=== PATIENT | female | born 1940 | race Caucasian/White ===

== ENCOUNTER 2019-05-31 18:56 | Inpatient (IN) | payer MEDICARE, MEDICAID ==
[~2019-05-31] VITALS: Ht 154.9 cm; Wt 50.3 kg
[~2019-05-31 18:56] MED LIST: LEXAPRO10 MG ORAL; MECLIZINE HCL12.5 MG ORAL; METOPROLOL TART25 MG ORAL; NEXIUM2.5 MG ORAL
[2019-05-31 18:59] VITALS: BP 155/94
--- NOTE | 2019-05-31 18:59 | NUR ---
ED Nurse Note: Pt brought in by JS RA [id number] from home for c/o musculoskeletal chest pain and nose pain s/p fall. Per [facility], pt was walking outside of her apartment complex and tripped and fell from ground level landing on her chest and face. Abrasians to nose noted. No LOC or head trauma. Pt had recent pacemaker insetion one week ago. Pt is aaox4, breathing is normal and unlabored. No cardiac distress noted. Pt placed on teletypesetter monitor. safety measures in place, will continue to monitor.
--- NOTE | 2019-05-31 19:05 | NUR ---
HAND-OFF: Report given to Heron Johnson and endorsed care.
--- NOTE | 2019-05-31 19:06 | NUR ---
ED Nurse Note: Received report from Rufina CASTRO. Pt alert and oriented, verbally responsive. Not in any distress. Will cont to monitor.
[2019-05-31] MEDS ORDERED: Morphine Sulfate 2mg/ml Inj(IV/IM USE ONLY) IVP ONE (19:30)
[2019-05-31] MEDS ORDERED: Bacitracin Oint UD TOPIC ONE (19:30)
--- NOTE | 2019-05-31 19:30 | NUR ---
ED Nurse Note: IV line established. Blood specimen collected and sent to lab.
[2019-05-31 19:38] LABS: BASOPHILS % (AUTO) 0.7 % (0.0-2.0); EOSINOPHILS % (AUTO) 0.5 % (0.0-3.0); HEMATOCRIT 38.8 % (37.0-47.0); HEMOGLOBIN 12.9 G/DL (12.0-16.0); LYMPHOCYTES % (AUTO) 12.7 % (20.0-45.0); MEAN CORPUSCULAR VOLUME 85 FL (80-99); MONOCYTES % (AUTO) 6.5 % (1.0-10.0); NEUTROPHILS % (AUTO) 79.6 % (45.0-75.0); PLATELET COUNT 155 K/UL (150-450); RED BLOOD COUNT 4.56 M/UL (4.20-5.40); RED CELL DISTRIBUTION WIDTH 12.4 % (11.6-14.8); WHITE BLOOD COUNT 5.8 K/UL (4.8-10.8)
--- NOTE | 2019-05-31 19:55 | NUR ---
ED Nurse Note: Pt was taken for CT.
[2019-05-31 20:01] LABS: ANION GAP 10 mmol/L (5-15); BLOOD UREA NITROGEN 20 mg/dL (7-18); CALCIUM 9.1 MG/DL (8.5-10.1); CARBON DIOXIDE 25 MMOL/L (21-32); CHLORIDE 106 MMOL/L (98-107); CREATININE 0.8 MG/DL (0.55-1.30); POTASSIUM 4.2 MMOL/L (3.5-5.1); SODIUM 141 MMOL/L (136-145)
[2019-05-31 20:03] LABS: ALANINE AMINOTRANSFERASE 22 U/L (12-78); ALBUMIN 3.6 G/DL (3.4-5.0); ALBUMIN/GLOBULIN RATIO 1.1 (1.0-2.7); ALKALINE PHOSPHATASE 75 U/L (46-116); ASPARTATE AMINO TRANSFERASE 20 U/L (15-37); BILIRUBIN,TOTAL 0.5 MG/DL (0.2-1.0)
--- NOTE | 2019-05-31 20:14 | NUR ---
ED Nurse Note: Pt came back from CT. Not in any distress.
[2019-05-31 20:15] VITALS: BP 166/79
--- NOTE | 2019-05-31 20:25 | Emergency Room Report ---
History of Present Illness General Chief Complaint: Multiple Trauma/Fall Source: Patient Present Illness HPI 79-year-old female presents ED for evaluation. Brought in by EMS from home. Patient had a mechanical trip and fall. Fell forward and hit her head. Landed on her chest. Denies LOC. Has abrasions and swelling to her nose. Pain to her chest. Dull, 7 out of 10, nonradiating. Denies any other injuries. Denies photophobia or blurry vision. Denies taking blood thinners. No other aggravating relieving factors. Denies any other associated symptoms Allergies: Coded Allergies: No Known Allergies (Unverified , 05/31/19) Patient History Past Medical History: HTN Past Surgical History: pacemaker Pertinent Family History: none Social History: Denies: smoking, alcohol use, drug use Now: No Immunizations: UTD Reviewed Nursing Documentation: PMH: Agreed; PSxH: Agreed Nursing Documentation-PMH Past Medical History: No History, Except For Hx Hypertension: Yes Hx Pacemaker: Yes Review of Systems All Other Systems: negative except mentioned in HPI Physical Exam Vital Signs Date Time Temp Pulse Resp B/P (MAP) Pulse Ox O2 Delivery O2 Flow Rate FiO2 05/31/19 18:49 98.2 97 19 155/94 (114) 98 Room Air Sp02 EP Interpretation: reviewed, normal General Appearance: no apparent distress, alert, GCS 15, non-toxic Head: normocephalic, atraumatic Eyes: bilateral eye normal inspection, bilateral eye PERRL ENT: hearing grossly normal, normal pharynx, no angioedema, normal voice, other - swelling/abrasions to nose Neck: full range of motion, supple, no bony tend, supple/symm/no masses Respiratory: chest non-tender, lungs clear, normal breath sounds, speaking full sentences Cardiovascular #1: regular rate, rhythm, no edema Cardiovascular #2: 2+ carotid (R), 2+ carotid (L), 2+ radial (R), 2+ radial (L) , 2+ dorsalis pedis (R), 2+ dorsalis pedis (L) Gastrointestinal: normal bowel sounds, non tender, soft, non-distended, no guarding, no rebound Rectal: deferred Genitourinary: normal inspection, no CVA tenderness Musculoskeletal: back normal, normal range of motion, gait/station normal, non- tender Neurologic: alert, motor strength/tone normal, oriented x3, sensory intact, responsive, speech normal Psychiatric: judgement/insight normal, memory normal, mood/affect normal, no suicidal/homicidal ideation Reflexes: 3+ bicep (R), 3+ bicep (L), 3+ tricep (R), 3+ tricep (L), 3+ knee (R) , 3+ knee (L) Skin: abrasion - to nose Lymphatic: no adenopathy Medical Decision Making Diagnostic Impression: Primary Impression: Weakness Additional Impressions: Unsteady gait Head injury Qualified Codes: S09.90XA - Unspecified injury of head, initial encounter ER Course Hospital Course 79 yo F presents with abrasions to face, nose s/p fall Differential diagnoses include: [place]/unstable angina, arrythmia, dehydration, CVA/ TIA Clinical course Patient placed on stretcher. on cafeteria monitor. After initial history and physical I ordered labs, EKG, chest x-ray, IVFs, CT Brain, CT facial bones labs reviewed- no leukocytosis, hemoglobin/hematocrit ok, electrolytes okay, troponins negative EKG- NSR no acute ischemic changes intpereted by me CT brain-unremarkable CT facial bones - nasal bone fx CT chest - no acute process discussed with patient and son at bedside. workup negative, however patient remains unsteady during ambulation. I did not believe it is safe to discharge to home patient will be admitted to the hospital Case discussed with Dr. Duarte and he agreed to accept the patient to his service for further care and support I. I feel this is a highly complex case requiring extensive working including EKG/Rhythm strip, Xray/CT/US, Blood/urine lab work, repeat exams while in ED, and administration of strong opiates/narcotics for pain control, admission to hospital or close patient follow up. Diagnosis - weakness, unsteady gait, head injury admitted to floor in serious condition Labs Test 05/31/19 19:30 White Blood Count 5.8 K/UL (4.8-10.8) Red Blood Count 4.56 M/UL (4.20-5.40) Hemoglobin 12.9 G/DL (12.0-16.0) Hematocrit 38.8 % (37.0-47.0) Mean Corpuscular Volume 85 FL (80-99) Mean Corpuscular Hemoglobin 28.3 PG (27.0-31.0) Mean Corpuscular Hemoglobin Concent 33.3 G/DL (32.0-36.0) Red Cell Distribution Width 12.4 % (11.6-14.8) Platelet Count 155 K/UL (150-450) Mean Platelet Volume 7.5 FL (6.5-10.1) Neutrophils (%) (Auto) 79.6 % (45.0-75.0) Lymphocytes (%) (Auto) 12.7 % (20.0-45.0) Monocytes (%) (Auto) 6.5 % (1.0-10.0) Eosinophils (%) (Auto) 0.5 % (0.0-3.0) Basophils (%) (Auto) 0.7 % (0.0-2.0) Sodium Level 141 MMOL/L (136-145) Potassium Level 4.2 MMOL/L (3.5-5.1) Chloride Level 106 MMOL/L (98-107) Carbon Dioxide Level 25 MMOL/L (21-32) Anion Gap 10 mmol/L (5-15) Blood Urea Nitrogen 20 mg/dL (7-18) Creatinine 0.8 MG/DL (0.55-1.30) Estimat Glomerular Filtration Rate mL/min (>60) Glucose Level 111 MG/DL (74-106) Calcium Level 9.1 MG/DL (8.5-10.1) Total Bilirubin 0.5 MG/DL (0.2-1.0) Aspartate Amino Transf (AST/SGOT) 20 U/L (15-37) Alanine Aminotransferase (ALT/SGPT) 22 U/L (12-78) Alkaline Phosphatase 75 U/L (46-116) Troponin I 0.000 ng/mL (0.000-0.056) Total Protein 7.0 G/DL (6.4-8.2) Albumin 3.6 G/DL (3.4-5.0) Globulin 3.4 g/dL Albumin/Globulin Ratio 1.1 (1.0-2.7) EKG Diagnostic Results Rate: normal Rhythm: NSR ST Segments: no acute changes ASA given to the pt in ED: No Rhythm Strip Diag. Results EP Interpretation: yes Rhythm: NSR, no PVC's, no ectopy CT/MRI/US Diagnostic Results CT/MRI/US Diagnostic Results #1: Imaging Test Ordered: CT head Impression no acute process CT/MRI/US Diagnostic Results #2: Imaging Test Ordered: CT Facial Bones Impression nasal bone fx CT/MRI/US Diagnostic Results #3: Imaging Test Ordered: CT chest Impression no acute process Last Vital Signs Date Time Temp Pulse Resp B/P (MAP) Pulse Ox O2 Delivery O2 Flow Rate FiO2 05/31/19 20:05 98.2 05/31/19 18:59 96 19 155/94 98 Room Air Status: improved Disposition: ADMITTED INPATIENT Condition: Serious Referrals: NOT CHOSEN IPA/,REFERRING (PCP) Mina Chiang MD May 31, 2019 20:24
--- NOTE | 2019-05-31 21:46 | NUR ---
ED Nurse Note: Tor (son): [phone] or [phone].
--- NOTE | 2019-05-31 22:22 | NUR ---
ED Nurse Note: Report given to Derek CASTRO from [facility].
[2019-05-31 22:25] VITALS: BP 150/82
--- NOTE | 2019-05-31 22:25 | NUR ---
TRANSFER TO FLOOR: Patient transferred to [facility]. Report given to Derek CASTRO. Pt alert and oriented, verbally reponsive. No SOB. Afebrile. VSS. IV line on left AC 20g patent and intact. Med recon done. Belongings list done. All belongings given to the patient. Family member aware of transfer.
[2019-05-31 22:30] VITALS: BP 159/96
[2019-05-31] MEDS ORDERED: Acetaminophen 650 MG SUPP RECTAL PRN (22:30)
--- NOTE | 2019-05-31 22:30 | NUR ---
NURSE NOTES: Patient came from ER via gurney. A&OX4. IV site patent and intact. Bruise noted on face due to fall from home. Belongings are checked. Bed in lowest position. Call light within reach. Will continue to monitor.
[2019-05-31] MEDS ORDERED: SYNTHROID25 MCG ORAL (23:00)
--- NOTE | 2019-05-31 23:11 | NUR ---
NURSE NOTES: Call left message to Dr. Duarte for new admit order. waiting a call back.
--- NOTE | 2019-05-31 23:40 | NUR ---
NURSE NOTES: Call left message to Dr. Duarte for new admit order. waiting a call back.
--- NOTE | 2019-06-01 00:24 | NUR ---
NURSE NOTES: Call left message to Dr. Duarte for new admit order. waiting a call back.
--- NOTE | 2019-06-01 01:21 | NUR ---
NURSE NOTES: Call left message to Dr. Duarte for new admit order. Notified shoe repair supervisor. Waiting a call back.
[2019-06-01 04:00] VITALS: BP 135/84
--- NOTE | 2019-06-01 07:23 | NUR ---
HAND-OFF: Report given to Gutierrez CASTRO.
--- NOTE | 2019-06-01 07:28 | NUR ---
NURSE NOTES: REceived report from MATTHEW Price. patient in bed. sleeping. no respiratory distress noted with o2 4l via NC. no facial grimacing. F/c draining. IV ib LH 22 running d5w@75/hr. IV site intact. GTF running @60/hr. high flower position at all times. seizure precaution. side rails padded. low bed and locked. call light within reach. alarm on. will continue to provide plan of care Addendum: 06/01/19 at 0732 by ANTONELLA WALKER RN Wrong patient.
[2019-06-01] MEDS ORDERED: Levothyroxine 25mcg tab ORAL ONE (07:30)
--- NOTE | 2019-06-01 07:33 | NUR ---
NURSE NOTES: Received report from MATTHEW Price patient in bed. alert. oriented. verbally responsive. no respiratory distress noted. mild discomfort on chest d/t fall. bruises on both orbital area. IV on LAC 20 saline lock, intact.patient asking home medication levotyroxine 25mcg tab po before breakfast. RN notified Dr. Duarte and received order levotyroxine 25mcg tab po qd now @0730 and @0630 from tomorrow. order noted and carried out. the bed in the lowest position and locked. call light within reach. will continue to provide plan of care.
[2019-06-01 08:00] VITALS: BP 136/78
--- NOTE | 2019-06-01 08:40 | Diagnostic Imaging Report ---
Clinical Indication: Musculoskeletal chest pain and nose pain status post fall, patient fell from ground-level landing on chest and face Technique: Spiral acquisitions obtained through the chest. No IV contrast utilized, reason not stated. Multiplanar reconstructions generated. Total dose length product 505 mGycm. CTDIvol(s) 10 mGy. Dose reduction achieved using automated exposure control Comparison: none Findings: There is a minimally displaced fracture of the sternal body. There is a small contusion deep to this within the mediastinal fat. No other fractures are evident. There are degenerative changes of the thoracic spine noted. No other significant soft tissue contusion demonstrated. There is a 9 mm soft tissue attenuation nodule in the right lower lobe, image 40 series 3. There is a subpleural 7 mm nodule in the left lower lobe. There are dependent posterior pulmonary atelectatic changes, more on the right than on the left. Some atelectasis or scarring is seen in the left infrahilar region. No pneumothorax. The heart size is normal. There is minimal anterior pericardial thickening. There are coronary artery calcifications. The thyroid appears somewhat atrophic. No axillary or chest wall mass or adenopathy. Included upper abdominal anatomy demonstrates a calcification within the spleen. Impression: Positive for nondisplaced sternal body fracture. Small retrosternal contusion noted. This was not described on the [facility] preliminary report. This was phoned to Dr. Aguero at the time of interpretation 8 mm right lower lobe pulmonary nodule. Recommend short interval CT follow-up in 6-12 months, per Fleischner Society guidelines Basilar atelectatic changes bilaterally Trace pericardial thickening versus fluid The remainder of the findings agree with the preliminary interpretation provided overnight by [facility] teleradiology service. The CT scanner at [facility] is accredited by the [employer] and the scans are performed using protocols designed to limit radiation exposure to as low as reasonably achievable to attain images of sufficient resolution adequate for diagnostic evaluation.
[2019-06-01] MEDS: Heparin 5000 units/ml inj SUBQ SCH ×2 (09:23→20:52)
[2019-06-01 12:00] VITALS: BP 146/87
--- NOTE | 2019-06-01 14:17 | NUR ---
NURSE NOTES: seen by Dr. Duarte. Dr. maddox for neuro consult. check pace maker function. possible discharge tomorrow.
[2019-06-01 16:00] VITALS: BP 152/102
--- NOTE | 2019-06-01 16:12 | NUR ---
CASE MANAGEMENT:REVIEW 79 YR OLD FEMALE BIBA FROM HOME CC;MULTIPLE TRAUMA/FALL SI;MULTIPLE INJURIES DUE TO TRAUMA 98.2 97 19 155/94 98% RA LABS WNL CXR= DISPLACED FX OF STERNAL BODY IS;IV NS IV MORPHINE ADMITTED TO MED SURG DCP; TO HOME
--- NOTE | 2019-06-01 16:30 | History and Physical Report ---
DATE OF ADMISSION: 05/31/2019 DATE AND TIME SEEN: 06/01/2019 at 2 p.m. CONSULTANTS: 1. Rohan Nunez M.D. 2. Andrea Miller M.D. CHIEF COMPLAINT: Weakness, fall, facial trauma, periorbital ecchymosis. BRIEF HISTORY: This is an 79-year-old female who lives at home apparently tripped and fell on her face, did not pass out, but she did have periorbital ecchymosis and slight nosebleeds. She came in to [facility], diagnosed with facial trauma and periorbital ecchymosis, and admitted to medical floor for further treatment. Currently calm in bed. Slight facial pain. No complaint. REVIEW OF SYSTEMS: No chest pain. No shortness of breath. No nausea, vomiting, diarrhea. PAST MEDICAL HISTORY: Arrhythmias. PAST SURGICAL HISTORY: Pacemaker. ALLERGIES: Denies. SOCIAL HISTORY: No smoking. No alcohol. No intravenous drug abuse. FAMILY HISTORY: Noncontributory. PHYSICAL EXAMINATION: GENERAL: Calm in room, oriented x3, no acute distress. VITAL SIGNS: Temperature is 97 degrees, pulse 89, respirations 20, blood pressure 146/87. CARDIOVASCULAR: No murmur. LUNGS: Distant and clear. ABDOMEN: Bowel sounds positive. Soft, nontender, nondistended. EXTREMITIES: No cyanosis or edema. NEUROLOGIC: The patient moves all extremities, slightly weak. There is a periorbital ecchymosis noted also across the nose bridge slightly. LABORATORY DATA: At this time show CBC is normal. BMP show BUN 20, glucose 111, troponin 0.00. Otherwise, BMP is normal. MEDICATIONS: Levothyroxine, heparin, Zofran, Tylenol. ASSESSMENT: 1. Fall. 2. Facial trauma. 3. Periorbital ecchymosis. 4. Hypothyroid. 5. History of arrhythmia with pacemaker. PLAN: 1. PT/OT, dietary followup. 2. Resume home medications. 3. Neurology and Cardiology evaluations. 4. We will continue to follow the patient. Tj Duarte D.O. DR: LEXIS JOB#: [id number] CC:
--- NOTE | 2019-06-01 16:48 | Diagnostic Imaging Report ---
Indications: Nose pain status post fall Technique: Spiral images obtained through the facial bones. No IV contrast utilized. Multiplanar reconstructions were generated.Total dose length product 431 mGycm. CTDIvol(s) 25 mGy. Dose reduction achieved using automated exposure control Comparison: none Findings: There is very questionable slight irregularity of the tip of the nasal bone. No acute fractures otherwise. No worrisome sinus opacification. There is mild paranasal soft tissue swelling. Some gas within the nasal soft tissues could indicate penetrating trauma. The optic globes and retroseptal orbits are intact. Visualized cranial structures are unremarkable. The retroseptal facial soft tissues are unremarkable. Patient is edentulous. Impression: Very questionable slight irregularity of the nasal bone, doubtful significance but minimal fracture possible Evidence of nasal soft tissue injury This agrees with the preliminary interpretation provided overnight by [facility] teleradiology service. The CT scanner at [facility] is accredited by the [employer] and the scans are performed using protocols designed to limit radiation exposure to as low as reasonably achievable to attain images of sufficient resolution adequate for diagnostic evaluation.
--- NOTE | 2019-06-01 16:50 | Diagnostic Imaging Report ---
Indication: Reason For Exam: FALL Technique: spiral acquisitions obtained through the brain. Angled axial and coronal 5 x 5 mm slices were reconstructed. No IV contrast utilized. Radiation dose was minimized using automated exposure control Total dose length product mGycm. CTDIvol(s) mGy Comparison: none FINDINGS: No acute hemorrhage or edema. No mass effect or midline shift. There is age-related enlargement of the ventricles and extra axial CSF spaces. There is periventricular deep white matter ischemic change. Normal coleman-white differentiation. There is evidence of prior cataract surgery bilaterally.. Visualized sinuses are unremarkable. Intact calvarium. IMPRESSION: Chronic and age-related changes. Negative for acute intracranial bleed or mass effect This agrees with the preliminary interpretation provided overnight by [facility] teleradiology service. The CT scanner at [facility] is accredited by the [employer] and the scans are performed using protocols designed to limit radiation exposure to as low as reasonably achievable to attain images of sufficient resolution adequate for diagnostic evaluation
--- NOTE | 2019-06-01 17:32 | NUR ---
NURSE NOTES: patient has pain 7/10. patient has tylenol 650mg rectal for mild pain. patient is alert. swallow pills. notified DR. Duarte and waiting for further order.
--- NOTE | 2019-06-01 17:55 | NUR ---
NURSE NOTES: received call from Dr. Duarte. change the Tylenol 650mg PO PRN q6hrs for mild pain. give morphine 2mg IV Q4hr for severe pain. order noted and carried out.
[2019-06-01] MEDS ORDERED: Morphine Sulfate 2mg/ml Inj(IV/IM USE ONLY) IVP PRN (18:00)
--- NOTE | 2019-06-01 19:49 | NUR ---
NURSE NOTES: Received patient in bed, awake, alert, oriented, speaks Romansh/Maldivian, family at bedside, IV site is clean dry and intact, patient is ambulatory with steady gate, call light is within reach, bed is lowered, locked and alarm is on, will continue to monitor for comfort and safety.
[2019-06-01 20:13] VITALS: BP 155/88
[2019-06-02 00:02] VITALS: BP 148/74
[2019-06-02 04:50] VITALS: BP 126/70
[2019-06-02] MEDS: Levothyroxine 25mcg tab ORAL SCH (06:19)
--- NOTE | 2019-06-02 06:58 | NUR ---
HAND-OFF: Report given to Gutierrez CASTRO.
--- NOTE | 2019-06-02 07:17 | NUR ---
NURSE NOTES: received report from MATTHEW Singh. patient in bed. alert. verbally responsive. no respiratory distress noted. c/o mild pain on upper chest and face d/t fall. IV on LAC 20 heplock intact. pace maker on madan. fall precaution. yellow socks. sign on door. bed in the lowest position and locked. call light within reach. will continue to provide plan of care.
[2019-06-02 07:34] LABS: BASOPHILS % (AUTO) 0.8 % (0.0-2.0); EOSINOPHILS % (AUTO) 0.7 % (0.0-3.0); HEMATOCRIT 35.4 % (37.0-47.0); HEMOGLOBIN 12.1 G/DL (12.0-16.0); LYMPHOCYTES % (AUTO) 20.5 % (20.0-45.0); MEAN CORPUSCULAR VOLUME 84 FL (80-99); MONOCYTES % (AUTO) 10.7 % (1.0-10.0); NEUTROPHILS % (AUTO) 67.4 % (45.0-75.0); PLATELET COUNT 136 K/UL (150-450); RED CELL DISTRIBUTION WIDTH 12.4 % (11.6-14.8); WHITE BLOOD COUNT 5.6 K/UL (4.8-10.8)
[2019-06-02 07:35] LABS: ANION GAP 9 mmol/L (5-15); BLOOD UREA NITROGEN 15 mg/dL (7-18); CALCIUM 8.4 MG/DL (8.5-10.1); CARBON DIOXIDE 25 MMOL/L (21-32); CHLORIDE 107 MMOL/L (98-107); CREATININE 0.8 MG/DL (0.55-1.30); POTASSIUM 3.7 MMOL/L (3.5-5.1); SODIUM 141 MMOL/L (136-145)
[2019-06-02 08:00] VITALS: BP 136/70
[2019-06-02] MEDS: Heparin 5000 units/ml inj SUBQ SCH ×2 (08:28→20:53)
--- NOTE | 2019-06-02 08:28 | NUR ---
NURSE NOTES: Plt 136. RN held heparin injection SQ.
--- NOTE | 2019-06-02 08:50 | NUR ---
PT EVALUATION NOTE Patient seen for initial evaluation. Patient presents with generalized weakness and impaired balance which affects patient's ability to perform mobility tasks safely. Patient requires min assist for bed mobility and transfers, limited by increased anterior chest pain with mobility. Patient requires FWW for ambulation as patient is unsteady without assistive device and requires assistive device for balance. Patient able to ambulate 100 ft with c/o min fatigue after ambulation. Patient will benefit from skilled inpatient PT intervention to address strength, balance and safety for improved level of functional mobility. Recommend discharge to SNF for short term rehab vs home with caregiver assistance once medically cleared by MD. Recommend FWW for safe ambulation. Addendum: 06/02/19 at 0949 by LIAM CRAIN PT Amended: Links added.
[2019-06-02 12:00] VITALS: BP 122/81
--- NOTE | 2019-06-02 13:54 | NUR ---
NURSE NOTES: patient has neuroconsult with Enrique Reid. RN called doctor's office. is not available to see the patient today. MD is aware patient has neuro consult.
--- NOTE | 2019-06-02 14:00 | NUR ---
NURSE NOTES: Called Dr. Miller office. No answer at this time. no voice mail available.
--- NOTE | 2019-06-02 14:10 | General Progress Note ---
Assessment/Plan Problem List: (1) Multiple injuries due to trauma ICD Codes: T07.XXXA - Unspecified multiple injuries, initial encounter SNOMED: 862734864 (2) Head injury ICD Codes: S09.90XA - Unspecified injury of head, initial encounter SNOMED: 19432857 Qualifiers: Qualified Codes: S09.90XA - Unspecified injury of head, initial encounter (3) Weakness ICD Codes: R53.1 - Weakness SNOMED: 16417392 (4) Unsteady gait ICD Codes: R26.81 - Unsteadiness on feet SNOMED: 60010279, 160803637 Status: unchanged Assessment/Plan: pt diet pain control cbc bmp am dc plan snf Subjective Constitutional: Reports: weakness Allergies: Coded Allergies: No Known Allergies (Unverified , 05/31/19) All Systems: reviewed and negative except above Subjective calm in bed Objective Last 24 Hour Vital Signs Date Time Temp Pulse Resp B/P (MAP) Pulse Ox O2 Delivery O2 Flow Rate FiO2 06/02/19 12:00 99.2 77 18 122/81 (95) 95 06/02/19 09:00 Room Air 06/02/19 08:00 97.8 78 18 136/70 (92) 96 06/02/19 04:50 99.4 87 18 126/70 (88) 98 06/02/19 00:02 98.7 74 18 148/74 (98) 98 06/01/19 21:17 Room Air 06/01/19 20:13 97.8 88 18 155/88 (110) 97 06/01/19 16:00 100.0 90 20 152/102 (119) 97 Intake and Output 06/01/19 06/02/19 19:00 07:00 Intake Total 480 ml Balance 480 ml Intake Oral 480 ml # Voids 2 Laboratory Tests 06/02/19 06:30: White Blood Count 5.6, Red Blood Count 4.20, Hemoglobin 12.1, Hematocrit 35.4L, Mean Corpuscular Volume 84, Mean Corpuscular Hemoglobin 28.8, Mean Corpuscular Hemoglobin Concent 34.2, Red Cell Distribution Width 12.4, Platelet Count 136L, Mean Platelet Volume 7.6, Neutrophils (%) (Auto) 67.4, Lymphocytes (%) (Auto) 20.5, Monocytes (%) (Auto) 10.7H, Eosinophils (%) (Auto) 0.7, Basophils (%) ( Auto) 0.8, Sodium Level 141, Potassium Level 3.7, Chloride Level 107, Carbon Dioxide Level 25, Anion Gap 9, Blood Urea Nitrogen 15, Creatinine 0.8, Estimat Glomerular Filtration Rate , Glucose Level 96, Calcium Level 8.4L Height (Feet): 5 Height (Inches): 1.00 Weight (Pounds): 111 General Appearance: lethargic EENT: normal ENT inspection Neck: normal alignment Cardiovascular: normal peripheral pulses, normal rate, regular rhythm Respiratory/Chest: chest wall non-tender, lungs clear, normal breath sounds Abdomen: normal bowel sounds, non tender, soft Extremities: normal inspection Edema: no edema noted Arm (L), no edema noted Arm (R), no edema noted Leg (L), no edema noted Leg (R), no edema noted Pedal (L), no edema noted Pedal (R), no edema noted Generalized Neurologic: responsive, motor weakness Skin: normal pigmentation, warm/dry Tj Duarte DO Jun 02, 2019 14:10
[2019-06-02 16:00] VITALS: BP 135/78
--- NOTE | 2019-06-02 17:57 | NUR ---
RESIDENT SERVICES COORDINATORSALESPERSON FLORIST SUPPLIES SI: WEAKNESS S/P FALL T. 98.7 HR 67 RR 20 B/P 137/82 IS; HEPARIN SUBC MORPHINE IV PT EVAL MED/SURG STATUS
--- NOTE | 2019-06-02 19:16 | NUR ---
HAND-OFF: Report given to MATTHEW Driscoll.
--- NOTE | 2019-06-02 19:30 | NUR ---
NURSE NOTES: Received patient in bed. A/O x4. Patient is on room air with no respiratory distress noted. Patient denies pain at this time. Ecchymosis of Bilateral eyes noted. IV in Left AC noted with no redness or swelling.
[2019-06-02 20:00] VITALS: BP 145/90
--- NOTE | 2019-06-02 23:56 | Cardiology Progress Note ---
Assessment/Plan Assessment/Plan The patient is seen and examined, full consult note is dictated. Objective Last 24 Hour Vital Signs Date Time Temp Pulse Resp B/P (MAP) Pulse Ox O2 Delivery O2 Flow Rate FiO2 06/02/19 21:00 Room Air 06/02/19 20:00 98.9 83 12 145/90 (108) 95 06/02/19 16:00 99.0 79 18 135/78 (97) 96 06/02/19 12:00 99.2 77 18 122/81 (95) 95 06/02/19 09:00 Room Air 06/02/19 08:00 97.8 78 18 136/70 (92) 96 06/02/19 04:50 99.4 87 18 126/70 (88) 98 06/02/19 00:02 98.7 74 18 148/74 (98) 98 Intake and Output 06/01/19 06/02/19 19:00 07:00 Intake Total 480 ml Balance 480 ml Intake Oral 480 ml # Voids 2 Laboratory Tests Test 06/02/19 06:30 White Blood Count 5.6 K/UL (4.8-10.8) Red Blood Count 4.20 M/UL (4.20-5.40) Hemoglobin 12.1 G/DL (12.0-16.0) Hematocrit 35.4 % (37.0-47.0) L Mean Corpuscular Volume 84 FL (80-99) Mean Corpuscular Hemoglobin 28.8 PG (27.0-31.0) Mean Corpuscular Hemoglobin Concent 34.2 G/DL (32.0-36.0) Red Cell Distribution Width 12.4 % (11.6-14.8) Platelet Count 136 K/UL (150-450) L Mean Platelet Volume 7.6 FL (6.5-10.1) Neutrophils (%) (Auto) 67.4 % (45.0-75.0) Lymphocytes (%) (Auto) 20.5 % (20.0-45.0) Monocytes (%) (Auto) 10.7 % (1.0-10.0) H Eosinophils (%) (Auto) 0.7 % (0.0-3.0) Basophils (%) (Auto) 0.8 % (0.0-2.0) Sodium Level 141 MMOL/L (136-145) Potassium Level 3.7 MMOL/L (3.5-5.1) Chloride Level 107 MMOL/L (98-107) Carbon Dioxide Level 25 MMOL/L (21-32) Anion Gap 9 mmol/L (5-15) Blood Urea Nitrogen 15 mg/dL (7-18) Creatinine 0.8 MG/DL (0.55-1.30) Estimat Glomerular Filtration Rate mL/min (>60) Glucose Level 96 MG/DL (74-106) Calcium Level 8.4 MG/DL (8.5-10.1) L Andrea Miller MD Jun 02, 2019 23:56
[2019-06-03] VITALS: BP 147/89
[2019-06-03 04:00] VITALS: BP 150/87
[2019-06-03] MEDS: Levothyroxine 25mcg tab ORAL SCH (06:30)
[2019-06-03 07:41] LABS: BASOPHILS % (AUTO) 0.6 % (0.0-2.0); EOSINOPHILS % (AUTO) 1.6 % (0.0-3.0); HEMATOCRIT 37.7 % (37.0-47.0); HEMOGLOBIN 12.7 G/DL (12.0-16.0); MEAN CORPUSCULAR VOLUME 84 FL (80-99); MONOCYTES % (AUTO) 9.3 % (1.0-10.0); NEUTROPHILS % (AUTO) 67.5 % (45.0-75.0); PLATELET COUNT 146 K/UL (150-450); RED BLOOD COUNT 4.47 M/UL (4.20-5.40); RED CELL DISTRIBUTION WIDTH 12.3 % (11.6-14.8)
--- NOTE | 2019-06-03 07:44 | NUR ---
HAND-OFF: Report given to Suzy Demarco RN.
--- NOTE | 2019-06-03 07:45 | NUR ---
NURSE NOTES: Received patient in bed, awake, not in respiratory/cardiac distress.Denies any pain or discomfort. Room board was updated. Fall precaution. Patient is ambulatory with assist and supervision. Reminded patient to call nurses if needed. Patient's room is near the station.Frequent visual fo safety and needs. Will continue plan of care.
[2019-06-03 07:55] LABS: ANION GAP 8 mmol/L (5-15); BLOOD UREA NITROGEN 10 mg/dL (7-18); CALCIUM 8.5 MG/DL (8.5-10.1); CARBON DIOXIDE 24 MMOL/L (21-32); CHLORIDE 107 MMOL/L (98-107); CREATININE 0.8 MG/DL (0.55-1.30); SODIUM 139 MMOL/L (136-145)
[2019-06-03 08:00] VITALS: BP 131/66
--- NOTE | 2019-06-03 08:29 | General Progress Note ---
Assessment/Plan Problem List: (1) Multiple injuries due to trauma ICD Codes: T07.XXXA - Unspecified multiple injuries, initial encounter SNOMED: 826247290 (2) Head injury ICD Codes: S09.90XA - Unspecified injury of head, initial encounter SNOMED: 70970234 Qualifiers: Qualified Codes: S09.90XA - Unspecified injury of head, initial encounter (3) Weakness ICD Codes: R53.1 - Weakness SNOMED: 17816751 (4) Unsteady gait ICD Codes: R26.81 - Unsteadiness on feet SNOMED: 46243582, 087627805 Status: stable, progressing Assessment/Plan: pt diet pain control cbc bmp am dc plan w hh Subjective Constitutional: Reports: weakness Allergies: Coded Allergies: No Known Allergies (Unverified , 05/31/19) All Systems: reviewed and negative except above Subjective calm in bed Objective Last 24 Hour Vital Signs Date Time Temp Pulse Resp B/P (MAP) Pulse Ox O2 Delivery O2 Flow Rate FiO2 06/03/19 04:00 99.1 76 16 150/87 (108) 96 06/03/19 00:00 98.2 78 16 147/89 (108) 95 06/02/19 21:00 Room Air 06/02/19 20:00 98.9 83 12 145/90 (108) 95 06/02/19 16:00 99.0 79 18 135/78 (97) 96 06/02/19 12:00 99.2 77 18 122/81 (95) 95 06/02/19 09:00 Room Air Intake and Output 06/02/19 06/03/19 19:00 07:00 Intake Total 600 ml 600 ml Balance 600 ml 600 ml Intake Oral 600 ml 600 ml # Voids 3 3 Laboratory Tests 06/03/19 06:35: White Blood Count 6.0, Red Blood Count 4.47, Hemoglobin 12.7, Hematocrit 37.7, Mean Corpuscular Volume 84, Mean Corpuscular Hemoglobin 28.5, Mean Corpuscular Hemoglobin Concent 33.8, Red Cell Distribution Width 12.3, Platelet Count 146L, Mean Platelet Volume 7.6, Neutrophils (%) (Auto) 67.5, Lymphocytes (%) (Auto) 21.0, Monocytes (%) (Auto) 9.3, Eosinophils (%) (Auto) 1.6, Basophils (%) (Auto ) 0.6, Sodium Level 139, Potassium Level 4.0, Chloride Level 107, Carbon Dioxide Level 24, Anion Gap 8, Blood Urea Nitrogen 10, Creatinine 0.8, Estimat Glomerular Filtration Rate , Glucose Level 97, Calcium Level 8.5 Height (Feet): 5 Height (Inches): 1.00 Weight (Pounds): 111 General Appearance: lethargic EENT: normal ENT inspection Neck: normal alignment Cardiovascular: normal peripheral pulses, normal rate, regular rhythm Respiratory/Chest: chest wall non-tender, lungs clear, normal breath sounds Abdomen: normal bowel sounds, non tender, soft Extremities: normal inspection Edema: no edema noted Arm (L), no edema noted Arm (R), no edema noted Leg (L), no edema noted Leg (R), no edema noted Pedal (L), no edema noted Pedal (R), no edema noted Generalized Neurologic: motor weakness Skin: normal pigmentation, warm/dry Tj Duarte DO Jun 03, 2019 08:29
[2019-06-03] MEDS: Heparin 5000 units/ml inj SUBQ SCH ×2 (08:41→21:00)
[2019-06-03 12:00] VITALS: BP 133/70
--- NOTE | 2019-06-03 15:40 | NUR ---
NURSE NOTES: Dr. Nunez came in and RN reminded to see the patient.
[2019-06-03 16:00] VITALS: BP 138/88
--- NOTE | 2019-06-03 18:00 | NUR ---
NURSE NOTES: RN relayed to Dr. Miller about the patch on her left upper chest. 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 Dr. Miller said to leave the patch until she discharges from [facility].
--- NOTE | 2019-06-03 19:24 | NUR ---
HAND-OFF: Report given to Iesha.
--- NOTE | 2019-06-03 19:30 | NUR ---
NURSE NOTES: Patient in bed, awake and alert x4. On room air with no signs of respiratory distress. Family at bedside. Ecchymosis of bilateral eyes noted. IV intact and patent. Bed locked and in lowest position. Call light in reach.
[2019-06-03 20:00] VITALS: BP 151/91
--- NOTE | 2019-06-03 23:54 | Cardiology Progress Note ---
Assessment/Plan Assessment/Plan 1. Presumed syncopal event in view of facial trauma, would like to obtain 2D echo, carotid US and orthostatic vitals. 2. HTN, stage II, we would like to start the patient on low-dose metoprolol. 3. Periorbital ecchymosis. 4. Hypothyroidism with low thyroid function. We will adjust levothyroxine dosage. 5. Status post ZIO PATCH placement for monitoring of possible arrhythmias. This device need to mailed out for interpretation. Subjective Subjective No cardiac events reported. Objective Last 24 Hour Vital Signs Date Time Temp Pulse Resp B/P (MAP) Pulse Ox O2 Delivery O2 Flow Rate FiO2 06/03/19 20:18 Room Air 06/03/19 20:00 99.9 90 19 151/91 (111) 96 06/03/19 16:00 99.3 84 20 138/88 (105) 97 06/03/19 12:00 98.1 86 20 133/70 (91) 98 06/03/19 09:00 Room Air 06/03/19 08:00 97.9 83 19 131/66 (87) 98 06/03/19 04:00 99.1 76 16 150/87 (108) 96 06/03/19 00:00 98.2 78 16 147/89 (108) 95 Intake and Output 06/02/19 06/03/19 19:00 07:00 Intake Total 600 ml 600 ml Balance 600 ml 600 ml Intake Oral 600 ml 600 ml # Voids 3 3 Laboratory Tests Test 06/03/19 06:35 White Blood Count 6.0 K/UL (4.8-10.8) Red Blood Count 4.47 M/UL (4.20-5.40) Hemoglobin 12.7 G/DL (12.0-16.0) Hematocrit 37.7 % (37.0-47.0) Mean Corpuscular Volume 84 FL (80-99) Mean Corpuscular Hemoglobin 28.5 PG (27.0-31.0) Mean Corpuscular Hemoglobin Concent 33.8 G/DL (32.0-36.0) Red Cell Distribution Width 12.3 % (11.6-14.8) Platelet Count 146 K/UL (150-450) L Mean Platelet Volume 7.6 FL (6.5-10.1) Neutrophils (%) (Auto) 67.5 % (45.0-75.0) Lymphocytes (%) (Auto) 21.0 % (20.0-45.0) Monocytes (%) (Auto) 9.3 % (1.0-10.0) Eosinophils (%) (Auto) 1.6 % (0.0-3.0) Basophils (%) (Auto) 0.6 % (0.0-2.0) Sodium Level 139 MMOL/L (136-145) Potassium Level 4.0 MMOL/L (3.5-5.1) Chloride Level 107 MMOL/L (98-107) Carbon Dioxide Level 24 MMOL/L (21-32) Anion Gap 8 mmol/L (5-15) Blood Urea Nitrogen 10 mg/dL (7-18) Creatinine 0.8 MG/DL (0.55-1.30) Estimat Glomerular Filtration Rate mL/min (>60) Glucose Level 97 MG/DL (74-106) Calcium Level 8.5 MG/DL (8.5-10.1) Objective HEENT: Atraumatic and normocephalic. Anicteric. Pupils are equal, round, and reactive to light and accommodation. Periorbital ecchymosis. Extraocular muscles intact. NECK: JVP less than 5 cm. No carotid bruit. Carotid upstrokes are 2+ bilaterally. CARDIOVASCULAR: Normal S1, S2. Regular rate and rhythm. No murmurs, gallops, or rubs. PMI is at fourth intercostal space in the midclavicular line. There is presence of ZIO PATCH on the midsternum. LUNGS: Clear to auscultation bilaterally. ABDOMEN: Soft, nontender, nondistended. No hepatosplenomegaly. Positive bowel sounds. EXTREMITIES: No evidence of edema, clubbing, or cyanosis. Andrea Miller MD Jun 03, 2019 23:54
[2019-06-04] VITALS: BP 127/76
[2019-06-04 04:00] VITALS: BP 158/86
[2019-06-04] MEDS: Levothyroxine 25mcg tab ORAL SCH ×2 (06:02→07:17)
--- NOTE | 2019-06-04 07:30 | NUR ---
NURSE NOTES: Report received from Iesha CASTRO. Patient awake and alert x 4. Patient standing by the bedside, no complaints of CP or SOB. Patient ate breakfast. 20 max IV present and patent in the left ac. Patient is able to ambulate with minimal assistance. Bed in lowest position and locked. Will continue to follow plan of care. Addendum: 06/04/19 at 1504 by David Navarro RN heart monitor noted on left side of chest. Appears to be in tact. Told to be left in place per doctors request.
[2019-06-04 07:38] LABS: BASOPHILS % (AUTO) 0.9 % (0.0-2.0); EOSINOPHILS % (AUTO) 1.5 % (0.0-3.0); HEMATOCRIT 36.6 % (37.0-47.0); HEMOGLOBIN 12.2 G/DL (12.0-16.0); LYMPHOCYTES % (AUTO) 23.2 % (20.0-45.0); MEAN CORPUSCULAR VOLUME 84 FL (80-99); MONOCYTES % (AUTO) 11.7 % (1.0-10.0); NEUTROPHILS % (AUTO) 62.7 % (45.0-75.0); PLATELET COUNT 139 K/UL (150-450); RED BLOOD COUNT 4.34 M/UL (4.20-5.40); RED CELL DISTRIBUTION WIDTH 12.3 % (11.6-14.8); WHITE BLOOD COUNT 5.3 K/UL (4.8-10.8)
[2019-06-04 07:42] LABS: ANION GAP 7 mmol/L (5-15); BLOOD UREA NITROGEN 16 mg/dL (7-18); CALCIUM 8.5 MG/DL (8.5-10.1); CARBON DIOXIDE 25 MMOL/L (21-32); CHLORIDE 107 MMOL/L (98-107); CREATININE 0.8 MG/DL (0.55-1.30); SODIUM 139 MMOL/L (136-145)
[2019-06-04 08:00] VITALS: BP 137/86
[2019-06-04] MEDS: Heparin 5000 units/ml inj SUBQ SCH ×2 (08:56→20:46)
--- NOTE | 2019-06-04 08:57 | NUR ---
NURSE NOTES: Heparin held due to platelet count of 139. Will continue to monitor laboratory values. Will continue to follow plan of care.
--- NOTE | 2019-06-04 10:00 | NUR ---
NURSE NOTES: Called and left message for Doctor Enrique due to patient's TSH level of 7.145. Patient receiving 25 mcg of synthroid, last dose 71606/04/19. Will await for callback and follow up. Will continue to follow plan of care.
[2019-06-04 10:30] LABS: % IRON SATURATION 10 % (15-50); IRON 39 ug/dL (50-175); TOTAL IRON BINDING CAPACITY 383 ug/dL (250-450)
--- NOTE | 2019-06-04 10:38 | General Progress Note ---
Assessment/Plan Problem List: (1) Multiple injuries due to trauma ICD Codes: T07.XXXA - Unspecified multiple injuries, initial encounter SNOMED: 473375146 (2) Head injury ICD Codes: S09.90XA - Unspecified injury of head, initial encounter SNOMED: 42716431 Qualifiers: Qualified Codes: S09.90XA - Unspecified injury of head, initial encounter (3) Weakness ICD Codes: R53.1 - Weakness SNOMED: 21433174 (4) Unsteady gait ICD Codes: R26.81 - Unsteadiness on feet SNOMED: 45311652, 247165453 Status: stable, progressing Assessment/Plan: pt diet pain control cbc bmp am dc plan w hh Subjective Constitutional: Reports: weakness Allergies: Coded Allergies: No Known Allergies (Unverified , 05/31/19) All Systems: reviewed and negative except above Subjective calm in bed Objective Last 24 Hour Vital Signs Date Time Temp Pulse Resp B/P (MAP) Pulse Ox O2 Delivery O2 Flow Rate FiO2 06/04/19 09:00 Room Air 06/04/19 08:00 97.6 90 19 137/86 (103) 97 06/04/19 04:00 98.4 82 19 158/86 (110) 95 06/04/19 00:00 98.9 87 20 127/76 (93) 97 06/03/19 20:18 Room Air 06/03/19 20:00 99.9 90 19 151/91 (111) 96 06/03/19 16:00 99.3 84 20 138/88 (105) 97 06/03/19 12:00 98.1 86 20 133/70 (91) 98 Intake and Output 06/03/19 06/04/19 19:00 07:00 Intake Total 880 ml 240 ml Balance 880 ml 240 ml Intake Oral 880 ml 240 ml # Voids 6 3 Laboratory Tests 06/04/19 06:50: White Blood Count 5.3, Red Blood Count 4.34, Hemoglobin 12.2, Hematocrit 36.6L, Mean Corpuscular Volume 84, Mean Corpuscular Hemoglobin 28.2, Mean Corpuscular Hemoglobin Concent 33.4, Red Cell Distribution Width 12.3, Platelet Count 139L, Mean Platelet Volume 8.1, Neutrophils (%) (Auto) 62.7, Lymphocytes (%) (Auto) 23.2, Monocytes (%) (Auto) 11.7H, Eosinophils (%) (Auto) 1.5, Basophils (%) ( Auto) 0.9, Sodium Level 139, Potassium Level 4.0, Chloride Level 107, Carbon Dioxide Level 25, Anion Gap 7, Blood Urea Nitrogen 16, Creatinine 0.8, Estimat Glomerular Filtration Rate , Glucose Level 98, Calcium Level 8.5, Iron Level 39L , Total Iron Binding Capacity 383, Percent Iron Saturation 10L, Unsaturated Iron Binding 344, Vitamin B12 Level 436, Thyroid Stimulating Hormone (TSH) 7.145H Height (Feet): 5 Height (Inches): 1.00 Weight (Pounds): 111 General Appearance: lethargic EENT: normal ENT inspection Neck: normal alignment Cardiovascular: normal peripheral pulses, normal rate, regular rhythm Respiratory/Chest: chest wall non-tender, lungs clear, normal breath sounds Abdomen: normal bowel sounds, non tender, soft Extremities: normal inspection Edema: no edema noted Arm (L), no edema noted Arm (R), no edema noted Leg (L), no edema noted Leg (R), no edema noted Pedal (L), no edema noted Pedal (R), no edema noted Generalized Neurologic: motor weakness Skin: normal pigmentation, warm/dry Tj Duarte DO Jun 04, 2019 10:38
[2019-06-04 12:00] VITALS: BP 131/76
--- NOTE | 2019-06-04 14:00 | NUR ---
NURSE NOTES: Still have not heard back from Doctor Nunez regarding TSH of 7.145. Contact Doctor Duarte. Doctor Duarte referred David CASTRO to contact Doctor Elvia whom was covering the patient for endocrinology. Left message with Doctor Gan, waiting for call back. Will continue to follow plan of care.
--- NOTE | 2019-06-04 14:30 | NUR ---
NURSE NOTES: Patient yelled out from room. Patient sitting at edge of bed, stated that she is having palpitations and that her sternum is painful. Help patient back to bed with head of bed slightly elevated. Vital signs obtained, heart rate appeared to be irregular bouncing from 90 BPM to 140, BP of 140/90. Obtained EKG. Doctor Nathan contacted. Stated that EKG was normal. Awaiting further orders. Patient does not want pain medication at this time. States that pain has subsided now that she is in bed. Advised patient not to rest in bed, and call if she needed to get up. Bed locked, lowered, and alarmed. Call light and bedside table within reach. Will continue to follow plan of care.
--- NOTE | 2019-06-04 15:00 | NUR ---
NURSE NOTES: Patient is in bed asleep @ this time.
--- NOTE | 2019-06-04 15:30 | NUR ---
NURSE NOTES: RN asked if patient is going to stay in med surge or transfer to monitored bed, Dr. Miller said patient will stay in med surge. Will continue to monitor.
[2019-06-04 16:00] VITALS: BP 125/72
--- NOTE | 2019-06-04 18:01 | NUR ---
NURSE NOTES: Patient free of CP. Denies SOB. Denies pain. Patient sitting at edge of bed eating dinner.
--- NOTE | 2019-06-04 19:36 | NUR ---
HAND-OFF: Report given to Iesha CASTRO.
--- NOTE | 2019-06-04 19:37 | NUR ---
NURSE NOTES: Patient in bed, awake and alert x4. On room air with no signs of respiratory distress. Ecchymosis of bilateral eyes noted. No c/o pain at this time. IV intact and patent. Bed locked and in lowest position. Call light in reach.
[2019-06-04 20:00] VITALS: BP 143/95
--- NOTE | 2019-06-04 23:45 | NUR ---
NURSE NOTES: Dr. Gan came and assessed the patient/reviewed current labs. Increased Levothyroxine dose from 25 mcg to 50 mcg. Will continue plan of care as ordered.
--- NOTE | 2019-06-04 23:51 | NUR ---
NURSE NOTES: Patient's temp noted to be 100.6. Patient refusing Tylenol 650mg PRN. Explained the risks and benefits. Left message for primary MD. Awaiting orders.
[2019-06-05] VITALS: BP 146/84
--- NOTE | 2019-06-05 00:30 | Consultation ---
DATE OF CONSULTATION: 06/04/2019 NEUROLOGICAL CONSULTATION CONSULTING PHYSICIAN: Rohan Nunez M.D. CHIEF COMPLAINT: This is the first [facility] admission for this 79-year-old probably right-handed white woman from [facility] with a previous history of fracture of the left clavicle and shoulder in 2001 and hypothyroidism is brought to this hospital for a trip and fall at home. History of present injury was in the yard and it was dark. The patient apparently tripped over a stone falling face forward striking her nose and the maxillary area. She developed ecchymosis and probable nosebleed. The patient has been brought here to the hospital. She also developed chest pain. She denies any headaches at this time. The patient had blood chemistries, which were normal except for slightly elevated BUN of 20 and a glucose of 111 decreased calcium of 8.4. CBC was normal on admission that showed low platelets on 06/02/2019, 06/03/2019, and 06/04/2019. Her white count was normal. Hematocrit was also decreased on 06/02/2019 and 06/04/[address] scan also revealed chronic age-related changes. Facial bone CT scan revealed a very questionable slight irregularity of the nasal bone, significance but minimal fracture possible. Evidence of nasal soft tissue injury. Chest CT revealed a nondisplaced sternal body fracture with small retrosternal contusion noted. There is also an 8 mm right lower lobe pulmonary nodule. The patient acetaminophen, heparin subcutaneous, , levothyroxine 25 mcg, and morphine p.r.n. pain. She has had at least 1 morphine injection. The patient denies any memory loss. She has had loss of smell for years. Her taste is unchanged, but she has no tremors or shakes, hearing loss, tinnitus, or dizzy spells. She denies any neck pain; however, she does complain of chest pain. She denies any dysarthria or dysphagia. There is probably no muscle weakness. She denies any gait disorder. She denies any tremors or shakes, diplopia, or new blurred vision. It is unclear whether she has paresthesias or dysesthesias probably mild. She does complain of scoliosis, which has had ago. The patient denies any loss of consciousness. Her father probably from a stroke and he had dementia. Mother probably of old age. PAST MEDICAL HISTORY/PAST MEDICAL ILLNESSESS: 1. Hypothyroidism. 2. Organic heart disease. 3. Arrhythmias. 4. She did have a pacemaker. HABITS: She does not drink, smoke or take drugs. ALLERGIES: No known allergies. FAMILY HISTORY: See above. REVIEW OF SYSTEMS: Her appetite has been good. Her weight is stable at 47 kilogram and she is 147 cm tall. PHYSICAL EXAMINATION: GENERAL: She is a well-developed and well-nourished woman, sitting up in bed, complaining of chest pain. Otherwise, in no acute distress. VITAL SIGNS: Blood pressure is 158/86, pulse is 82 and regular, temperature is 98.4 degrees, respiration rate is 19. HEENT: Examination of her head reveals bilateral half raccoon signs and bruising over the nose and ecchymoses. She is edentulous in the lower teeth, probably the upper teeth inward. There is also some tongue swelling. NECK: There is no posterior cervical tenderness. No muscle spasm. There is some limitation in motion to the left. Carotids are +2. There are no bruits. LUNGS: Clear to auscultation. CHEST: She has diffuse sternal tenderness. I could not feel a pacemaker. There is a Zio patch. CARDIOVASCULAR: PMI was not felt. JVP was flat. The patient had normal S1. S2 is physiologically split. I could not hear any S3, S4, murmurs, or rubs. ABDOMEN: Abdomen is well-nourished. There is no tenderness, masses, or organomegaly. BACK: There is some kyphosis noted and there is no tenderness. EXTREMITIES: She has a bruise on her left knee. NEUROLOGIC: MENTAL STATUS: Judgment could not be tested. Her [place] is poor. Affect, the affect is appropriate. Memory, past memory is intact to her birthday 1940. Immediate recall is 3/3 objects. Recent recall is 0/3 objects at 5 minutes. Intellect could not be done. Orientation, date - 06/04/2019. Place - [facility] fourth floor. Person - oriented to person. There was no right and left confusion. Comprehension was fair given the amount of [place]. She was alert and awake. CRANIAL NERVE EXAMINATION: CRANIAL NERVE II: Visual morales intact to confrontation. Fundi not visualized. Visual acuity tested. CRANIAL NERVES III, IV, AND : Extraocular motility was full. Pupils are approximately 2.5 to 3 mm, round, very sluggishly reactive to the light. CRANIAL NERVE V: Corneal and facial sensation are probably intact. CRANIAL NERVE VII: Facial strength is 5/5 bilaterally. CRANIAL NERVE VIII: Auditory acuity is intact to a moderate whisper. CRANIAL NERVES IX AND X: Gag is decreased bilaterally. CRANIAL NERVE XI: Sternocleidomastoid strength is 5/5. CRANIAL NERVE XII: Tongue protrudes in the midline without fasciculations or atrophy. MUSCLE EXAMINATION: Muscle bulk symmetrically decreased. Tone is normal to mild paratonia. Strength is 5/5 proximally and distally. There is some pronation of her left arm. REFLEXES: +2 in the upper extremities, +1 to +2 at the knees, 0 at the ankles with downgoing toes on testing for Babinski response. COORDINATION: [id number], [id number] testing are intact. GAIT AND STATION: She has a normal based gait. Minimally unsteady. Romberg is negative. Tandem walk is partially intact. Heel and toe walk are partially intact at least bilaterally symmetrical. SENSORY EXAMINATION: Difficult to evaluate. IMPRESSION: This patient has a slip and fall injuring mainly her face. She may have mild minimal cognitive impairment, although her Tanzanian is not that good. I am not sure she could understand the memory questions. As far as the pronation of the left arm is concerned, it is probably related to her previous left shoulder and clavicle fracture. She does have an arrhythmia and is being evaluated for the Zio patch. She has a nasal fracture and has a sternal fracture, which is causing a lot of her chest pain. Otherwise, there is no obvious acute injuries at this time. She will probably have to be followed just to make sure she does not develop a subdural hematoma given her age. PLAN: 1. I will follow this patient. 2. Medications for pain. 3. B12, methylmalonic acid level, iron studies. Thank you for this interesting case. Rohan Nunez MD DR: PETER JOB#: [id number] CC:
--- NOTE | 2019-06-05 03:45 | Consultation ---
DATE OF CONSULTATION: 06/05/2019 CARDIOLOGY CONSULTATION CONSULTING PHYSICIAN: Andrea Miller M.D. REFERRING PHYSICIAN: Tj Duarte D.O. REASON FOR CONSULTATION: Management of hypertension. HISTORY OF PRESENT ILLNESS: The patient is a very unfortunate 79-year-old female, presents to the emergency department for evaluation of mechanical fall. Apparently, the patient was brought in by EMS from home following a mechanical trip and fall. It is not clear if there was loss of consciousness. The patient had head trauma, but she did not hit against the ground. She has abrasions and swelling to her nose as well as pain to her chest. Her coronary artery disease risk factors includes only hypertension. Apparently she was seen by a buttonhole facer recently who placed ZIO PATCH on her chest for monitoring arrhythmias. There is no history of prior pacemaker implant. PAST MEDICAL HISTORY: Hypertension. PAST SURGICAL HISTORY: None FAMILY HISTORY: No premature coronary disease in first-degree relatives. SOCIAL HISTORY: Denies any tobacco, alcohol, or illicit drug use. REVIEW OF SYSTEMS: HEENT: Denies any headache, diplopia, or blurred vision. CONSTITUTIONAL: Denies any fever, chills, night sweats, or weight loss. CARDIOVASCULAR: Has some chest pain following a fall when she landed on the ground. Denies any shortness of breath, PND, orthopnea, or leg swelling. PULMONARY: Denies any cough, hemoptysis, or wheezing. GASTROINTESTINAL: Denies any nausea, vomiting, diarrhea, constipation, abdominal pain, or GI bleed. GENITOURINARY: Denies any hematuria, incontinence, or dysuria. NEUROLOGY: Denies any motor dysfunction, sensory deficit, or altered speech. MEDICATIONS: List of medications at home includes Synthroid 25 mcg p.o. daily. PHYSICAL EXAMINATION: VITAL SIGNS: At the time of arrival to the hospital, blood pressure was 155/94, pulse of 97, respirations 19, O2 saturation 98% on room air, and temperature 98.2 degrees Fahrenheit. GENERAL: The patient is a very pleasant 79-year-old lady, who was in no apparent respiratory distress. Alert and oriented x4. HEENT: Atraumatic and normocephalic. Anicteric. Pupils are equal, round, and reactive to light and accommodation. Periorbital ecchymosis. Extraocular muscles intact. NECK: JVP less than 5 cm. No carotid bruit. Carotid upstrokes are 2+ bilaterally. CARDIOVASCULAR: Normal S1, S2. Regular rate and rhythm. No murmurs, gallops, or rubs. PMI is at fourth intercostal space in the midclavicular line. There is presence of ZIO PATCH on the midsternum. LUNGS: Clear to auscultation bilaterally. ABDOMEN: Soft, nontender, nondistended. No hepatosplenomegaly. Positive bowel sounds. EXTREMITIES: No evidence of edema, clubbing, or cyanosis. DIAGNOSTIC DATA: CT of head showed chronic and age-related changes. Negative for intracranial bleed or mass effect. LABORATORY FINDINGS: WBC 5.8, hemoglobin 12.9, hematocrit 38.8, platelet count is 155. Chemistry, sodium 141, potassium is 4.2, chloride 106, bicarbonate 25, BUN of 20, creatinine 0.8, glucose 111, calcium is 9.1. Troponin I was 0. TSH was 7.1. ASSESSMENT AND PLAN: The patient is a very unfortunate 79-year-old female, who is seen in Cardiology consultation. 1. Presumed syncopal event in view of facial trauma, would like to obtain 2D echo, carotid US and orthostatic vitals. 2. HTN, stage 2, we would like to start the patient on low-dose metoprolol. 3. Periorbital ecchymosis. 4. Hypothyroidism with low thyroid function. We will adjust levothyroxine dosage. 5. Status post ZIO PATCH placement for monitoring of possible arrhythmias. This device need to mailed out for interpretation. I would like to thank, Dr. Duarte for the courtesy of this consultation. Andrea Miller M.D. DR: TYLOR JOB#: [id number] CC: CHERYL
--- NOTE | 2019-06-05 04:00 | Consultation ---
DATE OF CONSULTATION: NOTE: VERY POOR AUDIO REFERRING PHYSICIAN: Tj Duarte D.O. CONSULTING PHYSICIAN: Jens Gan M.D. REASON FOR CONSULTATION: The patient is a 79-year-old [place]an female, subclinical hypothyroidism. The patient obtained. . FAMILY HISTORY: Unremarkable. PERSONAL HISTORY: Unremarkable. REVIEW OF SYSTEMS: Unremarkable. PHYSICAL EXAMINATION: GENERAL: The patient in no acute distress. VITAL SIGNS: Blood pressure 113/95, pulse 73, respiratory rate 18, and temperature degrees. HEAD AND NECK: Unremarkable. LUNGS: Clear. HEART: Heart is regular. ABDOMEN: Soft, bowel sounds present. EXTREMITIES: . NEUROLOGICAL: Cranial nerves II through XII are grossly intact with toes downgoing to plantar stimulation. LABORATORY DATA: . ASSESSMENT: 1. . 2. Subclinical hypothyroidism. . 3. UTI, . 4. . Jens Gan M.D. DR: Marry JOB#: [id number] CC:
--- NOTE | 2019-06-05 04:56 | NUR ---
NURSE NOTES: Orders received by Dr. Duarte regarding temperature. Will follow plan of care as ordered.
[2019-06-05 06:45] LABS: EOSINOPHILS % (AUTO) 1.4 % (0.0-3.0); HEMATOCRIT 39.9 % (37.0-47.0); LYMPHOCYTES % (AUTO) 20.5 % (20.0-45.0); MEAN CORPUSCULAR VOLUME 85 FL (80-99); MONOCYTES % (AUTO) 9.2 % (1.0-10.0); NEUTROPHILS % (AUTO) 67.9 % (45.0-75.0); PLATELET COUNT 172 K/UL (150-450); RED BLOOD COUNT 4.69 M/UL (4.20-5.40); RED CELL DISTRIBUTION WIDTH 12.5 % (11.6-14.8); WHITE BLOOD COUNT 6.7 K/UL (4.8-10.8)
[2019-06-05 06:58] LABS: ANION GAP 10 mmol/L (5-15); BLOOD UREA NITROGEN 17 mg/dL (7-18); CALCIUM 8.8 MG/DL (8.5-10.1); CARBON DIOXIDE 25 MMOL/L (21-32); CHLORIDE 105 MMOL/L (98-107); CREATININE 0.9 MG/DL (0.55-1.30); POTASSIUM 3.9 MMOL/L (3.5-5.1); SODIUM 140 MMOL/L (136-145)
--- NOTE | 2019-06-05 07:20 | NUR ---
NURSE NOTES: Nurse report given by MATTHEW Julian. Patient's awake and sitting at bedside to eat breakfast. Mauritian speaking, able to speak minimal macedonian, AO x 3, denies pain, no s/s of distress or SOB. Bed low and locked, call light within reach, side rails x 2, bed alarm is armed. Ecchymosis noted bilateral eyes. IV is saline locked, patent and asymptomatic. WIll continue to monitor.
--- NOTE | 2019-06-05 07:51 | NUR ---
HAND-OFF: Report given to MATTHEW Ojeda.
[2019-06-05 08:00] VITALS: BP 138/84
[2019-06-05] MEDS: Heparin 5000 units/ml inj SUBQ SCH (09:00)
--- NOTE | 2019-06-05 09:55 | NUR ---
RADIOLOGY DEPT., CHEST X-RAY DONE.-P.DYE
--- NOTE | 2019-06-05 10:13 | Cardiology Progress Note ---
Assessment/Plan Assessment/Plan 1. Presumed syncopal event in view of facial trauma, would like to obtain 2D echo, carotid US and orthostatic vitals. 2. HTN, stage II, start metoprolol 25mg po bid. 3. Periorbital ecchymosis. 4. Hypothyroidism. 5. Status post ZIO PATCH placement for monitoring of possible arrhythmias. SHe is off cardiac telemetry. Subjective Subjective No cardiac events. Objective Last 24 Hour Vital Signs Date Time Temp Pulse Resp B/P (MAP) Pulse Ox O2 Delivery O2 Flow Rate FiO2 06/05/19 00:00 99.5 92 20 146/84 (104) 98 06/04/19 23:51 100.6 06/04/19 21:00 Room Air 06/04/19 20:00 100.1 103 19 143/95 (111) 98 06/04/19 16:00 98.8 92 18 125/72 (89) 98 06/04/19 12:00 98.6 88 17 131/76 (94) 98 Intake and Output 06/04/19 06/05/19 19:00 07:00 Intake Total 1200 ml 240 ml Balance 1200 ml 240 ml Intake Oral 240 ml Other 1200 ml # Voids 3 Laboratory Tests Test 06/05/19 05:30 White Blood Count 6.7 K/UL (4.8-10.8) Red Blood Count 4.69 M/UL (4.20-5.40) Hemoglobin 13.0 G/DL (12.0-16.0) Hematocrit 39.9 % (37.0-47.0) Mean Corpuscular Volume 85 FL (80-99) Mean Corpuscular Hemoglobin 27.6 PG (27.0-31.0) Mean Corpuscular Hemoglobin Concent 32.5 G/DL (32.0-36.0) Red Cell Distribution Width 12.5 % (11.6-14.8) Platelet Count 172 K/UL (150-450) Mean Platelet Volume 7.8 FL (6.5-10.1) Neutrophils (%) (Auto) 67.9 % (45.0-75.0) Lymphocytes (%) (Auto) 20.5 % (20.0-45.0) Monocytes (%) (Auto) 9.2 % (1.0-10.0) Eosinophils (%) (Auto) 1.4 % (0.0-3.0) Basophils (%) (Auto) 1.0 % (0.0-2.0) Sodium Level 140 MMOL/L (136-145) Potassium Level 3.9 MMOL/L (3.5-5.1) Chloride Level 105 MMOL/L (98-107) Carbon Dioxide Level 25 MMOL/L (21-32) Anion Gap 10 mmol/L (5-15) Blood Urea Nitrogen 17 mg/dL (7-18) Creatinine 0.9 MG/DL (0.55-1.30) Estimat Glomerular Filtration Rate mL/min (>60) Glucose Level 105 MG/DL (74-106) Calcium Level 8.8 MG/DL (8.5-10.1) Objective HEENT: Atraumatic and normocephalic. Anicteric. Pupils are equal, round, and reactive to light and accommodation. Periorbital ecchymosis. Extraocular muscles intact. NECK: JVP less than 5 cm. No carotid bruit. Carotid upstrokes are 2+ bilaterally. CARDIOVASCULAR: Normal S1, S2. Regular rate and rhythm. No murmurs, gallops, or rubs. PMI is at fourth intercostal space in the midclavicular line. There is presence of ZIO PATCH on the midsternum. LUNGS: Clear to auscultation bilaterally. ABDOMEN: Soft, nontender, nondistended. No hepatosplenomegaly. Positive bowel sounds. EXTREMITIES: No evidence of edema, clubbing, or cyanosis. Andrea Miller MD Jun 05, 2019 10:13
--- NOTE | 2019-06-05 10:19 | General Progress Note ---
Assessment/Plan Problem List: (1) Multiple injuries due to trauma ICD Codes: T07.XXXA - Unspecified multiple injuries, initial encounter SNOMED: 935627075 (2) Head injury ICD Codes: S09.90XA - Unspecified injury of head, initial encounter SNOMED: 70840723 Qualifiers: Qualified Codes: S09.90XA - Unspecified injury of head, initial encounter (3) Weakness ICD Codes: R53.1 - Weakness SNOMED: 85247743 (4) Unsteady gait ICD Codes: R26.81 - Unsteadiness on feet SNOMED: 76255725, 928936703 Status: stable, progressing Assessment/Plan: pt diet pain control cbc bmp am dc plan w hh Subjective Constitutional: Reports: weakness Allergies: Coded Allergies: No Known Allergies (Unverified , 05/31/19) All Systems: reviewed and negative except above Subjective calm in bed Objective Last 24 Hour Vital Signs Date Time Temp Pulse Resp B/P (MAP) Pulse Ox O2 Delivery O2 Flow Rate FiO2 06/05/19 00:00 99.5 92 20 146/84 (104) 98 06/04/19 23:51 100.6 06/04/19 21:00 Room Air 06/04/19 20:00 100.1 103 19 143/95 (111) 98 06/04/19 16:00 98.8 92 18 125/72 (89) 98 06/04/19 12:00 98.6 88 17 131/76 (94) 98 Intake and Output 06/04/19 06/05/19 19:00 07:00 Intake Total 1200 ml 240 ml Balance 1200 ml 240 ml Intake Oral 240 ml Other 1200 ml # Voids 3 Laboratory Tests 06/05/19 05:30: White Blood Count 6.7, Red Blood Count 4.69, Hemoglobin 13.0, Hematocrit 39.9, Mean Corpuscular Volume 85, Mean Corpuscular Hemoglobin 27.6, Mean Corpuscular Hemoglobin Concent 32.5, Red Cell Distribution Width 12.5, Platelet Count 172, Mean Platelet Volume 7.8, Neutrophils (%) (Auto) 67.9, Lymphocytes (%) (Auto) 20.5, Monocytes (%) (Auto) 9.2, Eosinophils (%) (Auto) 1.4, Basophils (%) (Auto ) 1.0, Sodium Level 140, Potassium Level 3.9, Chloride Level 105, Carbon Dioxide Level 25, Anion Gap 10, Blood Urea Nitrogen 17, Creatinine 0.9, Estimat Glomerular Filtration Rate , Glucose Level 105, Calcium Level 8.8 Height (Feet): 5 Height (Inches): 1.00 Weight (Pounds): 111 General Appearance: lethargic EENT: normal ENT inspection Neck: normal alignment Cardiovascular: normal peripheral pulses, normal rate, regular rhythm Respiratory/Chest: chest wall non-tender, lungs clear, normal breath sounds Abdomen: normal bowel sounds, non tender, soft Extremities: normal inspection Edema: no edema noted Arm (L), no edema noted Arm (R), no edema noted Leg (L), no edema noted Leg (R), no edema noted Pedal (L), no edema noted Pedal (R), no edema noted Generalized Neurologic: motor weakness Skin: normal pigmentation, warm/dry Tj Duarte DO Jun 05, 2019 10:19
--- NOTE | 2019-06-05 10:54 | Consultation ---
History of Present Illness General Date patient seen: Jun 05, 2019 Chief Complaint: Multiple Trauma/Fall Reason for Consultation: fever Present Illness HPI Ms. Gonzalez is an 79 yo female with PMHX of Arrhythmia s/p Pacemaker and Hypothyroid. who presened to the ED on 05/31/19 after a fall. She suffered trauam to her face. She had a low grade non sustained fever last night but is now afebrile. She has no leuckocytosis and is not on abx. She deneis dysurian and N/V/D and abd pain. No Cough or SOB. ID was consulted for Fever PMHx/PSHx Arrhythmia s/p Pacemaker Hypothyroid. SocHx No E/T/D FamHx Not Contributory Allergies: Coded Allergies: No Known Allergies (Unverified , 05/31/19) Medication History Scheduled Levothyroxine Sodium* (Synthroid*), 25 MCG ORAL DAILY, (Reported) Discontinued Medications Escitalopram Oxalate* (Lexapro*), Unknown Dose ORAL DAILY, (Reported) Discontinued Reason: Pt stopped taking med Esomeprazole Magnesium (Nexium), Unknown Dose ORAL DAILY, (Reported) Discontinued Reason: Pt stopped taking med Meclizine Hcl* (Meclizine*), Unknown Dose ORAL, (Reported) Discontinued Reason: Pt stopped taking med Metoprolol Tartrate* (Metoprolol Tartrate*), Unknown Dose ORAL EVERY 12 HOURS, ( Reported) Discontinued Reason: Pt stopped taking med Patient History Healthcare decision maker SELF Resuscitation status Full Code Advanced Directive on File Review of Systems ROS Narrative 12 point ROS negative except as noted in the HPI Physical Exam Last 24 Hour Vital Signs Date Time Temp Pulse Resp B/P (MAP) Pulse Ox O2 Delivery O2 Flow Rate FiO2 06/05/19 09:00 Room Air 06/05/19 08:00 97.6 80 16 138/84 (102) 98 06/05/19 00:00 99.5 92 20 146/84 (104) 98 06/04/19 23:51 100.6 06/04/19 21:00 Room Air 06/04/19 20:00 100.1 103 19 143/95 (111) 98 06/04/19 16:00 98.8 92 18 125/72 (89) 98 06/04/19 12:00 98.6 88 17 131/76 (94) 98 Intake and Output 06/04/19 06/05/19 19:00 07:00 Intake Total 1200 ml 240 ml Balance 1200 ml 240 ml Intake Oral 240 ml Other 1200 ml # Voids 3 Laboratory Tests Test 06/05/19 05:30 White Blood Count 6.7 K/UL (4.8-10.8) Red Blood Count 4.69 M/UL (4.20-5.40) Hemoglobin 13.0 G/DL (12.0-16.0) Hematocrit 39.9 % (37.0-47.0) Mean Corpuscular Volume 85 FL (80-99) Mean Corpuscular Hemoglobin 27.6 PG (27.0-31.0) Mean Corpuscular Hemoglobin Concent 32.5 G/DL (32.0-36.0) Red Cell Distribution Width 12.5 % (11.6-14.8) Platelet Count 172 K/UL (150-450) Mean Platelet Volume 7.8 FL (6.5-10.1) Neutrophils (%) (Auto) 67.9 % (45.0-75.0) Lymphocytes (%) (Auto) 20.5 % (20.0-45.0) Monocytes (%) (Auto) 9.2 % (1.0-10.0) Eosinophils (%) (Auto) 1.4 % (0.0-3.0) Basophils (%) (Auto) 1.0 % (0.0-2.0) Sodium Level 140 MMOL/L (136-145) Potassium Level 3.9 MMOL/L (3.5-5.1) Chloride Level 105 MMOL/L (98-107) Carbon Dioxide Level 25 MMOL/L (21-32) Anion Gap 10 mmol/L (5-15) Blood Urea Nitrogen 17 mg/dL (7-18) Creatinine 0.9 MG/DL (0.55-1.30) Estimat Glomerular Filtration Rate mL/min (>60) Glucose Level 105 MG/DL (74-106) Calcium Level 8.8 MG/DL (8.5-10.1) Height (Feet): 5 Height (Inches): 1.00 Weight (Pounds): 111 Medications Current Medications Medications (Trade) Dose Ordered Sig/Rhona Route PRN Reason Start Time Stop Time Status Last Admin Dose Admin Acetaminophen (Tylenol) 650 mg Q6H PRN ORAL Mild Pain/Temp > 100.5 06/01/19 18:00 07/01/19 17:59 Heparin Sodium (Porcine) (Heparin 5000 units/ml) 5,000 units EVERY 12 HOURS SUBQ 06/01/19 09:00 07/01/19 08:59 06/01/19 20:52 Levothyroxine Sodium (Synthroid) 50 mcg DAILY@0630 ORAL 06/05/19 06:30 07/05/19 06:29 06/05/19 07:35 Metoprolol Tartrate (Lopressor) 25 mg Q12HR ORAL 06/05/19 10:15 07/05/19 10:14 Morphine Sulfate (Morphine Sulfate) 2 mg Q4H PRN IVP For Pain 4-10 06/01/19 18:00 06/08/19 17:59 06/01/19 18:14 Objective Narrative Gen: NAD HEENT: Facial brusing, MMM, EOMI, PERRL, No Oral lesion, no scleral icterus NECK: full range of motion, supple, no meningismus, No LAD, No JVD LUNGS: CTAB, No W/C, No Accessory muscle use CARDS: RRR, S1, S2, No M/R/G, ABD: Soft, NT, ND, No R/G, + BS, No HSM, No Masses : Deferred Ext: C/C/E, Pulses 2+ B/L (DP, Rad): NEURO: A/O x 4, Strength and Sensation Grossly intact PSYCH: Normal mood and affect SKIN: Warm/dry, No rashes Assessment/Plan Assessment/Plan: 79 yo female with PMHX of Arrhythmia s/p Pacemaker and Hypothyroid who presened to the ED on 05/31/19 after a fall. Non sustained low grade fever No Leukocytosis Arrhythmia s/p Pacemaker Hypothyroid. PLAN: - Continue to monitor off abx - Monitor CBC and Temps Thank you for this consult. [facility] will continue to follow the patient with you during this hospitalization. Michael Mcfarland MD Jun 05, 2019 10:54
[2019-06-05 12:00] VITALS: BP 144/68
--- NOTE | 2019-06-05 12:00 | NUR ---
NURSE NOTES: SPoke to the Son-in-law and the patient regarding options to discharge: home with home health or SNF per Dr. Duarte's order. Patient wishes to go home with home health. Patient's son in law will pick patient up at 1700.
--- NOTE | 2019-06-05 12:44 | NUR ---
NURSE NOTES: Called Dr. Gan regarding patient's going home with homehealth and Dr. Duarte wants patient to continue hospital medication. Dr. Gan told to call Dr. Chavez. Left message to Dr. Tavarse regarding the situation, awaiting for call back.
--- NOTE | 2019-06-05 12:47 | NUR ---
NURSE NOTES: Spoke to Dr. Miller regarding patient's going home with home health and Dr. Duarte wants her to continue hospital medication. Dr. Miller aware and no order for patient to go home with medication, and patient will need to follow up with her wheel of fortune dealer who put her Zio Patch.
--- NOTE | 2019-06-05 13:00 | NUR ---
NURSE NOTES: Dr. Chavez called back and ordered Synthroid 100mcg to go home with. Dr. Chavez will call [facility] to order the prescription. Will keep update.
[2019-06-05] MEDS ORDERED: SYNTHROID100 MCG ORAL (13:15)
--- NOTE | 2019-06-05 13:54 | Diagnostic Imaging Report ---
Indication: Dyspnea Comparison: None A single view chest radiograph was obtained. Findings: No definite infiltrate or pulmonary vascular congestion identified. The heart is enlarged. The aorta is mildly enlarged consistent with atherosclerotic vascular disease. The bones are osteopenic. Impression: No acute disease
--- NOTE | 2019-06-05 14:00 | NUR ---
NURSE NOTES: Patient's discharged per Dr. Duarte's order. Patients' going home with homehealth and new prescription that is picked up by family member at [facility]. Patient's in stable condition, no s/s of distress or SOB, denies pain. Patient's belonging list, discharge document went over with patient and patient family member at bedside. Patient and family member acknowledged to picked up new prescription and to follow up with her poultry farm laborer who placed her Zio patch within 1 week. IV is removed, ID band discarded properly. Patient ambulates with TOURIST CABIN KEEPER assist and family member. Patient's off the floor at 1400. Charge nurse Kerri is aware.
--- NOTE | 2019-06-06 15:06 | Discharge Summary ---
Discharge Summary Discharge Summary _ DATE OF ADMISSION: 05/31/2019 DATE OF DISCHARGE: 06/05/2019 DISCHARGED BY: Dr. Duarte REASON FOR ADMISSION: 79 years old female with past medical history of hypertension, pacemaker, presented to emergency room for evaluation from home after she sustained a trip and fall. Patient fell forward and hit her head. Patient landed on her chest. She denied loss of consciousness. Patient had abrasion and swelling to her nose and pain in her chest , described as dull ,7 out of 10 and nonradiating. No other injury. No photophobia or blurry vision. Patient was not taking any blood thinners. Upon evaluation blood pressure was 155/94 , otherwise vital signs were stable. EKG revealed sinus rhythm , no acute ischemic changes. CT of the brain revealed no acute intracranial pathology. CT of the facial bones revealed nasal bone fracture. CT of the chest revealed nondisplaced sternal body fracture with small retrosternal contusion. 8 mm right lower lobe pulmonary nodule . Patient was noted to wear ZIO patch for arrhythmia monitoring. Patient subsequently was admitted for further management. CONSULTANTS: cutting department supervisor Dr. Miller neurologist Dr. Nunez ID specialist Dr. Mcfarland beach lifeguard Dr. Gan [facility] COURSE: Patient admitted initially to telemetry floor . Laborer [employer] followed. Per cutting department supervisor , patient likely had syncopal episode. Echocardiogram revealed preserved ejection fraction 65% with no evidence of left ventricular hypertrophy. No evidence of wall motion abnormality to the extent visualized. Patient apparently was evaluated with ZIO patch as outpatient for arrhythmia. Patient was reminded that device need to be mailed for interpretation after completion. DVT prophylaxis provided. Pain management was addressed. TSH was elevated , and dose of levothyroxine was decreased as per beach lifeguard. Repeat TFT in 1 month. Hemoglobin and hematocrit were closely monitored. No evidence of anemia. Prior to discharge hemoglobin 13, hematocrit 33.9. ID specialist consulted for fever . Patient remained hemodynamically stable . No leukocytosis, no clear evidence of infection. Patient denied dysuria, nausea ,vomiting ,diarrhea ,abdominal pain. No cough or shortness of breath. ID specialist recommended to keep patient off antibiotics. Fall precautions were maintained . Patient was working with physical therapist. Supportive care provided. Patient clinically stabilized. Pain was controlled. Patient was stable for discharge home with home health services. FINAL DIAGNOSES: Status post fall Presumed syncopal episode Multiply injuries due to trauma Nasal fracture Nondisplaced sternal body fracture Periorbital ecchymosis Hypertension stage II Hypothyroidism with elevated TSH Arrhythmias, status post pacemaker implantation Status post ZIO PATCH placement for monitoring of possible arrhythmias Unsteady gait DISCHARGE MEDICATIONS: See Medication Reconciliation list. DISCHARGE INSTRUCTIONS: Patient was discharged home with home health services. Follow up with primary care provider in one week. I have been assigned to dictate discharge summary for this account. I was not involved in the patient's management. Aliya Goetz NP Jun 06, 2019 15:06
== END 2019-06-05 14:01 | disposition home health service (06) | DRG 135 ==
LOC: EDBD 18:56 → EMR 19:30 → 4E 21:45 → EDBEDREQ 22:01
DX: S22.22XA Fracture of body of sternum, initial encounter for closed fracture (principal); S00.10XA Contusion of unspecified eyelid and periocular area, initial encounter; S02.2XXA Fracture of nasal bones, initial encounter for closed fracture; W01.0XXA Fall on same level from slipping, tripping and stumbling without subsequent striking against object, initial encounter; Y92.007 Garden or yard of unspecified non-institutional (private) residence as the place of occurrence of the external cause; R26.9 Unspecified abnormalities of gait and mobility; Z95.0 Presence of cardiac pacemaker; I49.9 Cardiac arrhythmia, unspecified; R55 Syncope and collapse; E03.9 Hypothyroidism, unspecified; R91.1 Solitary pulmonary nodule
CPT/HCPCS: 36415; 70450; 70486; 71045; 71250; 80048; 80053; 82607; 83540; 83550; 84443; 84484; 85025; 87040; 93005; 93306; 96374; 99285

== ENCOUNTER 2019-07-28 18:17 | Inpatient (IN) | payer MEDICAID, MEDICARE ==
[~2019-07-28] VITALS: Ht 154.9 cm; Wt 59.0 kg
[~2019-07-28 18:17] MED LIST changes: +SYNTHROID100 MCG ORAL; +SYNTHROID25 MCG ORAL
--- NOTE | 2019-07-28 18:37 | Emergency Room Report ---
History of Present Illness General Chief Complaint: Multiple Trauma/Fall Source: Patient, Medical Record Present Illness HPI Disclaimer: Please note that this report is being documented using DRAGON technology. This can lead to erroneous entry secondary to incorrect interpretation by the dictating instrument. HPI: 79-year-old female history of heart failure status post pacemaker presents for evaluation after a fall. Patient is primarily [place]-speaking and history and physical exam were performed with the use of a rn first assistant. She was going up to use the bathroom 2 days ago fell onto her right side and was unable to get up. She notes pain in the hip, femur and knee. Unable to bear weight. She has been down on the ground for 2 days. The police were called for a foul smell calling from her apartment. She is awake and alert. Denying chest pain, shortness of breath, back pain. There was no head injury no loss conscious. She does not take blood thinners. PMH: Heart failure PSH: Pacemaker Allergies: Denies Social Hx: Denies drug or alcohol abuse Allergies: Coded Allergies: No Known Allergies (Unverified , 05/31/19) Nursing Documentation-PMH Past Medical History: No History, Except For Hx Hypertension: Yes Hx Pacemaker: Yes Hx Cancer: No Hx Gastrointestinal Problems: No Hx Neurological Problems: No Review of Systems All Other Systems: negative except mentioned in HPI Physical Exam Vital Signs Date Time Temp Pulse Resp B/P (MAP) Pulse Ox O2 Delivery O2 Flow Rate FiO2 07/28/19 18:20 97.5 85 16 142/84 (103) 96 Room Air General: Awake and alert, appears uncomfortable HEENT: Normocephalic, atraumatic. There are no scalp or face hematomas, lacerations or abrasions. No tenderness or soft tissue swelling over the facial bones. EOMI. PERRLA. No septal hematoma. No oral lacerations. Dentition is intact. No malocclusion Neck: Supple, trachea midline. Arrives without cervical collar Chest Wall: No tenderness, no deformity, no crepitus CV: RRR. S1 and S2 normal. No murmur appreciated Resp: Normal work of breathing. No cough, wheezing or crackles appreciated Abd: Soft, nontender, nondistended Skin: Intact. No abrasions, laceration or rash over the exposed skin MSK: Tenderness to palpation in the right hip, the mid thigh and over the right knee. There is a palpable deformity on the medial aspect of the right knee. Unable to move the right lower extremity. Neuro: Awake and alert. Mentating appropriately. Sensation is intact to light touch over the dermatomes of the upper and lower extremities Spine: There is no tenderness, step-off or deformity in the cervical, thoracic or lumbosacral spine. Medical Decision Making Diagnostic Impression: Primary Impression: UTI (urinary tract infection) Additional Impressions: Elevated troponin Rhabdomyolysis Femur fracture ER Course 79-year-old female presents for evaluation after a fall 2 days ago. She is alert, oriented complaining of right lower extremity pain concern for fracture in the hip or femur. Will obtain x-rays of the right lower extremity, broad metabolic work-up given her prolonged time on the floor. Will start IV fluids and patient will require admission. Laboratory Tests Test 07/28/19 18:50 White Blood Count 19.6 K/UL (4.8-10.8) H Red Blood Count 5.20 M/UL (4.20-5.40) Hemoglobin 14.4 G/DL (12.0-16.0) Hematocrit 44.9 % (37.0-47.0) Mean Corpuscular Volume 86 FL (80-99) Mean Corpuscular Hemoglobin 27.7 PG (27.0-31.0) Mean Corpuscular Hemoglobin Concent 32.1 G/DL (32.0-36.0) Red Cell Distribution Width 13.5 % (11.6-14.8) Platelet Count 123 K/UL (150-450) L Mean Platelet Volume 10.3 FL (6.5-10.1) H Neutrophils (%) (Auto) % (45.0-75.0) Lymphocytes (%) (Auto) % (20.0-45.0) Monocytes (%) (Auto) % (1.0-10.0) Eosinophils (%) (Auto) % (0.0-3.0) Basophils (%) (Auto) % (0.0-2.0) Differential Total Cells Counted 100 Neutrophils % (Manual) 87 % (45-75) H Lymphocytes % (Manual) 5 % (20-45) L Monocytes % (Manual) 6 % (1-10) Eosinophils % (Manual) 0 % (0-3) Basophils % (Manual) 0 % (0-2) Band Neutrophils 2 % (0-8) Platelet Estimate Decreased L Platelet Morphology Normal Red Blood Cell Morphology Normal Prothrombin Time 10.9 SEC (9.30-11.50) Prothrombin Time INR 1.0 (0.9-1.1) Activated Partial Thromboplast Time 29 SEC (23-33) Urine Color Pale yellow Urine Appearance Cloudy Urine pH 5.0 (4.5-8.0) Urine Specific [employer] 1.015 (1.005-1.035) Urine Protein 3+ (NEGATIVE) H Urine Glucose (UA) Negative (NEGATIVE) Urine Ketones Negative (NEGATIVE) Urine Blood 4+ (NEGATIVE) H Urine Nitrite Negative (NEGATIVE) Urine Bilirubin Negative (NEGATIVE) Urine Urobilinogen Normal MG/DL (0.0-1.0) Urine Leukocyte Esterase 3+ (NEGATIVE) H Urine RBC 5-10 /HPF (0 - 2) H Urine WBC 10-15 /HPF (0 - 2) H Urine Squamous Epithelial Cells Few /LPF (NONE/OCC) Urine Bacteria Many /HPF (NONE) H Sodium Level 141 MMOL/L (136-145) Potassium Level 3.6 MMOL/L (3.5-5.1) Chloride Level 104 MMOL/L (98-107) Carbon Dioxide Level 20 MMOL/L (21-32) L Anion Gap 17 mmol/L (5-15) H Blood Urea Nitrogen 40 mg/dL (7-18) H Creatinine 1.0 MG/DL (0.55-1.30) Estimate Glomerular Filtration Rate 53.2 mL/min (>60) Glucose Level 143 MG/DL (74-106) H Calcium Level 9.1 MG/DL (8.5-10.1) Total Bilirubin 1.1 MG/DL (0.2-1.0) H Direct Bilirubin 0.2 MG/DL (0.0-0.3) Aspartate Amino Transferase (AST) 161 U/L (15-37) H Alanine Aminotransferase (ALT) 79 U/L (12-78) H Alkaline Phosphatase 86 U/L (46-116) Total Creatine Kinase 4450 U/L (26-308) H Troponin I 0.778 ng/mL (0.000-0.056) Total Protein 7.0 G/DL (6.4-8.2) Albumin 3.0 G/DL (3.4-5.0) L Globulin 4.0 g/dL Albumin/Globulin Ratio 0.8 (1.0-2.7) L EKG Diagnostic Results EKG Time: 18:46 Rate: normal Rhythm: NSR ST Segments: no acute changes Other Impression Sinus rhythm, normal axis, prolonged QTC at [address] segment changes. Rhythm Strip Diag. Results Rhythm Strip Time: 18:46 Other X-Ray Diagnostic Results Other X-Ray Diagnostic Results #1: X-Ray ordered: Right hip and pelvis # of Views/Limited Vs Complete: Limited Indication: Pain EP Interpretation: Yes Interpretation: other - Acute fracture either femoral neck or intertrochanteric Impression: Other - Right femoral neck or intertrochanteric fracture Electronically Signed by: Electronically signed by Dr. Joshua Aguero Other X-Ray Diagnostic Results #2: X-Ray ordered: Femur # of Views/Limited Vs Complete: 2 View Indication: Pain Interpretation: other - Right intertrochanteric or femoral neck fracture Impression: Other - Right intertrochanteric or femoral neck fracture Electronically Signed by: Electronically signed by Dr. Joshua Aguero Other X-Ray Diagnostic Results #3: X-Ray ordered: Tib-fib Indication: Pain EP Interpretation: Yes Interpretation: other - No obvious fracture dislocation Impression: Other - No obvious fracture or dislocation Electronically Signed by: Electronically signed by Dr. Joshua Aguero CT/MRI/US Diagnostic Results CT/MRI/US Diagnostic Results : Impression Final Report EXAM: CT Head Without Intravenous Contrast CLINICAL HISTORY: INJ TECHNIQUE: Axial computed tomography images of the head/brain without intravenous contrast. CTDI is 53 mGy and DLP is 1064 mGy-cm. One or more of the following dose reduction techniques were used: automated exposure control, adjustment of the mA and/or kV according to patient size, use of iterative reconstruction technique. COMPARISON: No relevant prior studies available. FINDINGS: Brain: Age appropriate generalized cerebral atrophy. No evidence of mass-effect or intracranial hemorrhage. Mild periventricular low attenuation in the periventricular white matter likely chronic small vessel disease. Ventricles: Unremarkable. No ventriculomegaly. Bones/joints: Unremarkable. No acute fracture. Soft tissues: Unremarkable. Sinuses: Unremarkable as visualized. No acute sinusitis. Mastoid air cells: Unremarkable as visualized. No mastoid effusion. Other findings: Motion degraded study. IMPRESSION: No acute intracranial abnormality identified on a Motion degraded study. Radiologist: Mic Michel MD Electronically Signed: 07/28/19 22:17 Study ready at 22:00 and initial results transmitted at 22:17 Reevaluation Time: 23:13 Last Vital Signs Date Time Temp Pulse Resp B/P (MAP) Pulse Ox O2 Delivery O2 Flow Rate FiO2 07/28/19 18:20 97.5 85 16 142/84 (103) 96 Room Air Reevaluation Impression Labs show elevated white count at 19.6 with a neutrophil predominance. Likely source is urine which shows 3+ leukocyte esterase and 10-15 white cells along with many bacteria indicative of any acute urinary tract infection. Chemistry shows elevation in BUN at 40 though a normal creatinine. There is a troponin leak at 0.778 with nonspecific EKG changes. Total creatinine elevated at 4450. This is likely from the patient's prolonged time on the ground showing mild rhabdo myelitis. She continues to receive IV fluids. She was given ceftriaxone for the urinary tract infection. CT scan was obtained when the patient's son arrived stating that she seemed somewhat more confused than usual. She was unable to recall his phone number. CT does not show obvious signs of intracranial trauma or mass or other abnormalities. Patient will be admitted to the panel physician. Discussed with orthopedic surgery will evaluate the patient to discuss treatment options. Patient and son were updated at bedside. They understand agree with this treatment plan. Disposition: ADMITTED INPATIENT Condition: Serious Joshua Aguero MD Jul 28, 2019 18:37
--- NOTE | 2019-07-28 18:51 | NUR ---
ED Nurse Note:pt. was BIBA from home, s/p fall about 2 days ago and she was on the floor till found today by family, she c/o right leg and knee pain, pt. is A/Ox3 [place] island[place] speaking, blood and urine sent to labs
[2019-07-28 18:53] VITALS: BP 142/84
--- NOTE | 2019-07-28 19:09 | NUR ---
Pam woods in EDM - 07/28/19 at 1914 by [email or web address] ED Nurse Note: received report from Angy CASTRO. Pt went to ct via luna accompanied by [email or web address].
--- NOTE | 2019-07-28 19:09 | NUR ---
ED Nurse Note: received report from Angy CASTRO. Pt went to xr via luna accompanied by daisy salcedo.
--- NOTE | 2019-07-28 19:15 | NUR ---
ED Nurse Note: pt back from xr via [facility] accompanied by daisy salcedo in stable condition. family at bedside
[2019-07-28 19:17] VITALS: BP 128/88
[2019-07-28 19:17] LABS: ANION GAP 17 mmol/L (5-15); BLOOD UREA NITROGEN 40 mg/dL (7-18); CALCIUM 9.1 MG/DL (8.5-10.1); CARBON DIOXIDE 20 MMOL/L (21-32); CHLORIDE 104 MMOL/L (98-107); POTASSIUM 3.6 MMOL/L (3.5-5.1); SODIUM 141 MMOL/L (136-145)
[2019-07-28 19:24] LABS: HEMATOCRIT 44.9 % (37.0-47.0); HEMOGLOBIN 14.4 G/DL (12.0-16.0); MEAN CORPUSCULAR VOLUME 86 FL (80-99); PLATELET COUNT 123 K/UL (150-450); RED CELL DISTRIBUTION WIDTH 13.5 % (11.6-14.8); WHITE BLOOD COUNT 19.6 K/UL (4.8-10.8)
[2019-07-28 19:31] LABS: ALANINE AMINOTRANSFERASE 79 U/L (12-78); ALBUMIN/GLOBULIN RATIO 0.8 (1.0-2.7); ALKALINE PHOSPHATASE 86 U/L (46-116); ASPARTATE AMINO TRANSFERASE 161 U/L (15-37); BILIRUBIN,TOTAL 1.1 MG/DL (0.2-1.0); CREATINE KINASE 4450 U/L (26-308)
[2019-07-28 19:33] LABS: BILIRUBIN,DIRECT 0.2 MG/DL (0.0-0.3)
--- NOTE | 2019-07-28 20:21 | Diagnostic Imaging Report ---
EXAM: XR Right Tibia and Fibula, 2 Views CLINICAL HISTORY: INJ TECHNIQUE: Frontal and lateral views of the right tibia and fibula. COMPARISON: No relevant prior studies available. FINDINGS: Advanced tricompartmental degenerative changes of the knee. Diffuse osteopenia. No acute fracture identified.
--- NOTE | 2019-07-28 20:24 | Diagnostic Imaging Report ---
EXAM: XR Right Femur, 2 Views CLINICAL HISTORY: INJ TECHNIQUE: Frontal and lateral views of the right femur. COMPARISON: No relevant prior studies available. FINDINGS: Displaced fracture right femoral neck. Diffuse osteopenia throughout. Advanced tricompartmental degenerative changes right knee.
--- NOTE | 2019-07-28 20:26 | Diagnostic Imaging Report ---
EXAM: XR Pelvis, 1 or 2 Views CLINICAL HISTORY: INJ TECHNIQUE: Frontal view of the pelvis. COMPARISON: No relevant prior studies available. FINDINGS: Diffuse osteopenia. Displaced right femoral neck fracture. There is irregularity left intertrochanteric region and proximal metaphysis/diaphysis suggesting nondisplaced fracture.
[2019-07-28 20:40] LABS: APPEARANCE,URINE CLOUDY; COLOR,URINE PALE YELLOW
[2019-07-28 20:41] LABS: BILIRUBIN, URINE NEGATIVE (NEGATIVE); GLUCOSE, URINE (UA) NEGATIVE (NEGATIVE); KETONES,URINE NEGATIVE (NEGATIVE); LEUKOCYTE ESTERASE ,URINE 3+ (NEGATIVE); NITRITE,URINE NEGATIVE (NEGATIVE); PROTEIN,URINE 3+ (NEGATIVE); UROBILINOGEN,URINE NORMAL MG/DL (0.0-1.0)
[2019-07-28 20:42] VITALS: BP 135/78
[2019-07-28] MEDS ORDERED: Nitroglycerin Subl 0.4mg tab SL PRN (20:45)
[2019-07-28] MEDS ORDERED: Morphine Sulfate 2mg/ml Inj(IV/IM USE ONLY) IVP PRN (20:45)
[2019-07-28] MEDS ORDERED: Acetaminophen 650 MG SUPP RECTAL PRN ×2 (20:45)
[2019-07-28] MEDS ORDERED: Morphine Sulfate 4mg/ml Inj (IV USE ONLY) IVP PRN (20:45)
[2019-07-28] MEDS ORDERED: Miralax 17gm pkt ORAL PRN (20:45)
[2019-07-28] MEDS: Aspirin Baby 81mg ORAL SCH (20:58)
[2019-07-28] MEDS: Docusate 100mg cap ORAL SCH (21:00)
[2019-07-28] MEDS: Heparin 5000 units/ml inj SUBQ SCH (21:00)
--- NOTE | 2019-07-28 21:07 | Diagnostic Imaging Report ---
EXAM: XR Chest, 1 View CLINICAL HISTORY: ABN LABS TECHNIQUE: Frontal view of the chest. COMPARISON: 06/05/19 FINDINGS: Patient is rotated. At least mild cardiac enlargement. Again noted is marked ectasia/tortuosity of the thoracic aorta. Negative for parenchymal consolidation, pneumothorax or pleural fluid collections.
--- NOTE | 2019-07-28 21:10 | NUR ---
ED Nurse Note: GAVE REPORT TO PRATIBHA CASTRO FOR TELE. PER ERMD ORDER, WILL HOLD ADMISSION AND WAIT FOR CT HEAD RESULT
--- NOTE | 2019-07-28 21:41 | Diagnostic Imaging Report ---
EXAM: XR Right Hip With Pelvis When Performed, 1 View CLINICAL HISTORY: INJ TECHNIQUE: Frontal view of the right hip, with pelvis when performed. COMPARISON: No relevant prior studies available. FINDINGS: Moderately displaced fracture right femoral neck.
--- NOTE | 2019-07-28 21:49 | NUR ---
ED Nurse Note: PT WENT FOR CT VIA GURNEY ACCOMPANIED BY LEVEL VIAL INSPECTOR IN STABLE CONDITION
--- NOTE | 2019-07-28 22:00 | NUR ---
ED Nurse Note: PT BACK FROM CT VIA BLAIR IN STABLE CONDITION
--- NOTE | 2019-07-28 22:18 | Diagnostic Imaging Report ---
EXAM: CT Head Without Intravenous Contrast CLINICAL HISTORY: INJ TECHNIQUE: Axial computed tomography images of the head/brain without intravenous contrast. CTDI is 53 mGy and DLP is 1064 mGy-cm. One or more of the following dose reduction techniques were used: automated exposure control, adjustment of the mA and/or kV according to patient size, use of iterative reconstruction technique. COMPARISON: No relevant prior studies available. FINDINGS: Brain: Age appropriate generalized cerebral atrophy. No evidence of mass-effect or intracranial hemorrhage. Mild periventricular low attenuation in the periventricular white matter likely chronic small vessel disease. Ventricles: Unremarkable. No ventriculomegaly. Bones/joints: Unremarkable. No acute fracture. Soft tissues: Unremarkable. Sinuses: Unremarkable as visualized. No acute sinusitis. Mastoid air cells: Unremarkable as visualized. No mastoid effusion. Other findings: Motion degraded study. IMPRESSION: No acute intracranial abnormality identified on a Motion degraded study.
[2019-07-28] MEDS ORDERED: cefTRIAXone 1 GM in D5W 55 ML IVPB ONE (22:30)
--- NOTE | 2019-07-28 22:40 | NUR ---
TRANSFER TO FLOOR: Patient transferred to via gurney accompanied by rn and tech in stable condition as ordered, per . Report given to harrison mena. Belongings sent with patient
--- NOTE | 2019-07-28 23:00 | NUR ---
NURSE NOTES: Received pt from Dav Olivarez RN. Pt awake, alert, and ku[place]i speaking only. Skin intact. Pt incontinent. Lung sounds clear. No s/sx of pain. R. Leg slightly shorter than left leg. Bed in lowest position. Call light within reach. Will continue to monitor.
[2019-07-29 00:49] VITALS: BP 152/85
[2019-07-29] MEDS: 1/2NS w/KCl 20mEq 1000ml 1,000 ML IV SCH ×5 (00:55→23:29)
[2019-07-29 04:00] VITALS: BP 118/76
--- NOTE | 2019-07-29 07:30 | NUR ---
NURSE NOTES: Received report from MATTHEW Bloom. Pt observed lying in bed, sleeping, breathing even and unlabored in RA. No s/sx of acute distress. Bed on lowest position, call light within reach. Will continue plan of care.
--- NOTE | 2019-07-29 07:39 | NUR ---
HAND-OFF: Report given to MATTHEW Kam. Pt stable.
[2019-07-29 08:00] VITALS: BP 147/73
[2019-07-29 08:44] LABS: ALANINE AMINOTRANSFERASE 59 U/L (12-78); ALBUMIN 2.4 G/DL (3.4-5.0); ALBUMIN/GLOBULIN RATIO 0.7 (1.0-2.7); ALKALINE PHOSPHATASE 80 U/L (46-116); ANION GAP 16 mmol/L (5-15); ASPARTATE AMINO TRANSFERASE 101 U/L (15-37); BILIRUBIN,TOTAL 0.7 MG/DL (0.2-1.0); BLOOD UREA NITROGEN 33 mg/dL (7-18); CALCIUM 8.2 MG/DL (8.5-10.1); CARBON DIOXIDE 19 MMOL/L (21-32); CHLORIDE 107 MMOL/L (98-107); CREATINE KINASE 1762 U/L (26-308); CREATININE 0.9 MG/DL (0.55-1.30); POTASSIUM 3.5 MMOL/L (3.5-5.1); SODIUM 142 MMOL/L (136-145)
[2019-07-29 09:08] LABS: CKMB 10.3 NG/ML (0.0-3.6)
[2019-07-29] MEDS: Docusate 100mg cap ORAL SCH ×2 (10:08→20:43)
[2019-07-29] MEDS: Aspirin Baby 81mg ORAL SCH (10:08)
[2019-07-29] MEDS: Heparin 5000 units/ml inj SUBQ SCH (10:09)
[2019-07-29 10:45] LABS: HEMATOCRIT 36.7 % (37.0-47.0); HEMOGLOBIN 12.5 G/DL (12.0-16.0); MEAN CORPUSCULAR VOLUME 85 FL (80-99); PLATELET COUNT 109 K/UL (150-450); RED BLOOD COUNT 4.34 M/UL (4.20-5.40); RED CELL DISTRIBUTION WIDTH 12.7 % (11.6-14.8); WHITE BLOOD COUNT 16.8 K/UL (4.8-10.8)
--- NOTE | 2019-07-29 10:53 | NUR ---
NURSE NOTES: Reported to Dr Pickard - troponin trending down from 0.778 to 0.532.
--- NOTE | 2019-07-29 10:55 | Consultation ---
Consult Note Consult Note Patient seen and evaluated. Requires Right hip hemiarthroplasty once medically stable. Will discuss with Dr. Decker and family and will get consent to proceed. Thank you Sarmad Nunez MD Jul 29, 2019 10:55
[2019-07-29] MEDS ORDERED: dilTIAZem HCl 25mg/5ml Inj IVP SCH (11:15)
[2019-07-29] MEDS ORDERED: Metoprolol Tartrate 50mg tab ORAL SCH (11:15)
[2019-07-29 12:00] VITALS: BP 137/69
[2019-07-29] MEDS: Piperacillin/Tazobactam 3.375 GM in NS 110 ML IVPB SCH ×2 (12:21→20:43)
[2019-07-29] MEDS: Enoxaparin 60mg Inj SUBQ SCH ×2 (12:22→23:30)
--- NOTE | 2019-07-29 12:30 | NUR ---
NURSE NOTES: Pt has new order of Lovenox, made doctor aware that platelet count is 109 and patient received Heparin in AM before it was DC. Dr Pickard said okay to give.
--- NOTE | 2019-07-29 14:30 | NUR ---
NURSE NOTES: Called pt's family member to ask if they can bring the dentures of the patient. Pt has an order for regular diet, but unable to chew. Family member said he will try to bring it today if he can get access to the pt's apartment, instructed to call [facility] before 5pm for update.
[2019-07-29 16:00] VITALS: BP 129/66
--- NOTE | 2019-07-29 19:40 | NUR ---
HAND-OFF: Report given to MATTHEW Luna. Observed pt sleeping, in stable condition. Endorsed plan of care.
--- NOTE | 2019-07-29 19:50 | NUR ---
NURSE NOTES: Received pt from MATTHEW Tiwari, Pt is awake and alert x3, pt is on RA, no SOB or acute respiratory distress noted. pt has IV access occluded, will reinsert. bed is locked and is in the lowest position, bed alarm on , call light within easy reach. will continue to monitor.
[2019-07-29 20:00] VITALS: BP 121/76
[2019-07-30 00:26] VITALS: BP 141/86
[2019-07-30] MEDS: Piperacillin/Tazobactam 3.375 GM in NS 110 ML IVPB SCH ×3 (03:17→21:55)
[2019-07-30] MEDS: 1/2NS w/KCl 20mEq 1000ml 1,000 ML IV SCH ×2 (03:19→12:35)
[2019-07-30 04:58] VITALS: BP 143/72
--- NOTE | 2019-07-30 07:27 | NUR ---
HAND-OFF: Report given to MATTHEW Benson
--- NOTE | 2019-07-30 07:30 | NUR ---
NURSE NOTES: Received pt from LIZ CASTRO, Pt is awake and alert,Pt is in RA, no SOB or acute respiratory distress noted. Pt has intact iv access LFA 20G is running well. Dr YOON is aware about PLT 80 and other lab results and V/S, no new order to RN. pt is eating breakfast by observation. Pt is on continues heart monitoring. all needs attended, bed is locked and is in the lowest position, call light within easy reach. will continue to monitor.
[2019-07-30 08:00] VITALS: BP 137/84
[2019-07-30 08:10] LABS: HEMATOCRIT 34.5 % (37.0-47.0); HEMOGLOBIN 11.8 G/DL (12.0-16.0); MEAN CORPUSCULAR VOLUME 84 FL (80-99); PLATELET COUNT 80 K/UL (150-450); RED CELL DISTRIBUTION WIDTH 12.8 % (11.6-14.8); WHITE BLOOD COUNT 7.5 K/UL (4.8-10.8)
[2019-07-30] MEDS: Enoxaparin 60mg Inj SUBQ SCH ×2 (09:00→22:01)
[2019-07-30 09:02] LABS: ALANINE AMINOTRANSFERASE 60 U/L (12-78); ALBUMIN 2.3 G/DL (3.4-5.0); ALBUMIN/GLOBULIN RATIO 0.8 (1.0-2.7); ALKALINE PHOSPHATASE 57 U/L (46-116); ANION GAP 9 mmol/L (5-15); ASPARTATE AMINO TRANSFERASE 67 U/L (15-37); BILIRUBIN,TOTAL 1.1 MG/DL (0.2-1.0); BLOOD UREA NITROGEN 23 mg/dL (7-18); CALCIUM 7.8 MG/DL (8.5-10.1); CARBON DIOXIDE 21 MMOL/L (21-32); CHLORIDE 110 MMOL/L (98-107); CREATINE KINASE 815 U/L (26-308); POTASSIUM 4.4 MMOL/L (3.5-5.1); SODIUM 140 MMOL/L (136-145)
[2019-07-30 09:10] LABS: BILIRUBIN,DIRECT 0.3 MG/DL (0.0-0.3)
--- NOTE | 2019-07-30 09:12 | NUR ---
NURSE NOTES: Dr TYLER is aware about troponin 0.234, no new order to RN.
[2019-07-30] MEDS: Aspirin Baby 81mg ORAL SCH (09:18)
[2019-07-30] MEDS: Docusate 100mg cap ORAL SCH ×2 (09:18→22:00)
[2019-07-30 12:00] VITALS: BP 122/77
--- NOTE | 2019-07-30 12:12 | NUR ---
NURSE NOTES: Dr YOON visited pt and he is aware about plt 80 ordered to hold Lovenox if plt<50 and ordered to give her now, noted and carried out. will continue to monitor. and is aware about troponin 0.234, no new order to RN, he will F/U.
[2019-07-30] MEDS ORDERED: Enoxaparin 60mg Inj SUBQ SCH (12:15)
--- NOTE | 2019-07-30 12:41 | General Progress Note ---
Assessment/Plan Problem List: (1) Paroxysmal atrial fibrillation ICD Codes: I48.0 - Paroxysmal atrial fibrillation SNOMED: 213549045 (2) Hip fracture ICD Codes: S72.009A - Fracture of unspecified part of neck of unspecified femur , initial encounter for closed fracture SNOMED: 622306408 (3) Rhabdomyolysis ICD Codes: M62.82 - Rhabdomyolysis SNOMED: 592930921 (4) UTI (urinary tract infection) ICD Codes: N39.0 - Urinary tract infection, site not specified SNOMED: 06245945, 547562401, 394397586 (5) Elevated troponin ICD Codes: R79.89 - Other specified abnormal findings of blood chemistry SNOMED: 199181048, 134897075, 801108083 Status Narrative now nsr, continue atb, tele, anticoag, surg tues Subjective Constitutional: Reports: weakness HEENT: Reports: no symptoms Cardiovascular: Reports: no symptoms Respiratory: Reports: no symptoms Gastrointestinal/Abdominal: Reports: no symptoms Genitourinary: Reports: incontinence Neurologic/Psychiatric: Reports: no symptoms Endocrine: Reports: no symptoms Hematologic/Lymphatic: Reports: no symptoms Allergies: Coded Allergies: No Known Allergies (Unverified , 05/31/19) Objective Last 24 Hour Vital Signs Date Time Temp Pulse Resp B/P (MAP) Pulse Ox O2 Delivery O2 Flow Rate FiO2 07/30/19 09:18 77 137/84 07/30/19 09:00 Room Air 07/30/19 08:00 98.5 77 18 137/84 (101) 95 07/30/19 07:46 72 07/30/19 04:58 98.0 82 19 143/72 (95) 95 07/30/19 04:00 73 07/30/19 00:26 98.0 80 19 141/86 (104) 94 07/30/19 00:00 78 07/29/19 21:00 Room Air 07/29/19 20:43 92 121/76 07/29/19 20:00 89 07/29/19 20:00 100.8 92 17 121/76 (91) 95 07/29/19 16:22 72 07/29/19 16:00 97.2 67 20 129/66 (87) 95 Intake and Output 07/29/19 07/30/19 19:00 07:00 Intake Total 1200 ml Output Total 550 ml 800 ml Balance 650 ml -800 ml Intake Oral 600 ml IV Total 600 ml Output Urine Total 550 ml 800 ml Laboratory Tests 07/30/19 05:50: White Blood Count 7.5#, Red Blood Count 4.10L, Hemoglobin 11.8L, Hematocrit 34.5L, Mean Corpuscular Volume 84, Mean Corpuscular Hemoglobin 28.7, Mean Corpuscular Hemoglobin Concent 34.2, Red Cell Distribution Width 12.8, Platelet Count 80L, Mean Platelet Volume 8.8, Neutrophils (%) (Auto) , Lymphocytes (%) ( Auto) , Monocytes (%) (Auto) , Eosinophils (%) (Auto) , Basophils (%) (Auto) , Differential Total Cells Counted 100, Neutrophils % (Manual) 83H, Lymphocytes % (Manual) 9L, Monocytes % (Manual) 6, Eosinophils % (Manual) 2, Basophils % ( Manual) 0, Band Neutrophils 0, Platelet Estimate DecreasedL, Platelet Morphology Normal, Hypochromasia 1+, Anisocytosis 1+, Sodium Level 140, Potassium Level 4.4, Chloride Level 110H, Carbon Dioxide Level 21, Anion Gap 9, Blood Urea Nitrogen 23H, Creatinine 1.0, Estimat Glomerular Filtration Rate 53.2 , Glucose Level 93, Calcium Level 7.8L, Total Bilirubin 1.1H, Direct Bilirubin 0.3, Aspartate Amino Transf (AST/SGOT) 67H, Alanine Aminotransferase (ALT/SGPT) 60, Alkaline Phosphatase 57, Total Creatine Kinase 815H, Troponin I 0.234H, Total Protein 5.2L, Albumin 2.3L, Globulin 2.9, Albumin/Globulin Ratio 0.8L, Thyroid Stimulating Hormone (TSH) 3.374 Height (Feet): 5 Height (Inches): 1.00 Weight (Pounds): 130 General Appearance: no apparent distress, alert EENT: normal ENT inspection Neck: normal alignment Cardiovascular: normal rate, regular rhythm Respiratory/Chest: lungs clear Abdomen: soft Extremities: other - r leg ext rotated Dylon Decker MD Jul 30, 2019 12:41
[2019-07-30 16:00] VITALS: BP 112/73
--- NOTE | 2019-07-30 19:01 | NUR ---
NURSE NOTES: Received pt from SELENA APARICIO RN [id number], Pt is awake and A&O 1,Pt has NC 2LMP. Pt has intact iv access LH 20G and 22G SL. is on bed side. Pt is on continues heart monitoring. no complain of pain at this moment. pt is on seizure precaution, pads around side rails and suction available. skin is intact. all needs attended, bed is locked and is in the lowest position, call light within easy reach. will continue to monitor.
--- NOTE | 2019-07-30 19:32 | NUR ---
HAND-OFF: Report given to LIZ CASTRO. Pt is awake and stable.
--- NOTE | 2019-07-30 19:35 | NUR ---
NURSE NOTES: Received pt from MATTHEW Benson, Pt is asleep at this time, pt is on RA, no SOB or acute respiratory distress noted. bed is locked and is in the lowest position, bed alarm on , call light within easy reach. will continue to monitor.
[2019-07-30 20:00] VITALS: BP 145/93
[2019-07-31] VITALS: BP 156/86
--- NOTE | 2019-07-31 03:00 | Progress Note ---
DATE: 07/30/2019 CARDIOLOGY PROGRESS NOTE SUBJECTIVE: She remains in sinus rhythm. Continues on IV antimicrobials. Telemetry reviewed by me. OBJECTIVE: VITAL SIGNS: Blood pressure 137/84, pulse 77, respirations 18, and afebrile. LUNGS: Clear. CARDIAC: Regular. Normal S1 and S2. ABDOMEN: Soft. EXTREMITIES: No edema. Bruising over right hip. LABORATORY DATA: White count 7.5 and hemoglobin 11.8. Troponin 0.234. Sodium 140, potassium 4.4, bicarb 21, BUN 23, and creatinine 1. IMPRESSION: 1. UTI with sepsis. 2. Mechanical fall. 3. Right hip fracture. 4. Paroxysmal atrial fibrillation. 5. Acute myocardial ischemia. 6. Acute on chronic diastolic congestive heart failure. 7. Severe protein-calorie malnutrition. PLAN: 1. Antimicrobials. 2. Orthopedic surgery plans. 3. Adjust IV fluids. 4. Full anticoagulation for now, hold preoperatively. 5. Continue anti-platelet therapy. 6. Maintain beta-blockade. Michael Pickard M.D. DR: JATIN JOB#: [id number] CC:
[2019-07-31] MEDS: 1/2NS w/KCl 20mEq 1000ml 1,000 ML IV SCH ×2 (03:28→15:06)
[2019-07-31] MEDS: Piperacillin/Tazobactam 3.375 GM in NS 110 ML IVPB SCH ×3 (03:28→12:49)
[2019-07-31 04:00] VITALS: BP 147/83
--- NOTE | 2019-07-31 07:49 | NUR ---
HAND-OFF: Report given to MATTHEW Burdick.
[2019-07-31 08:00] VITALS: BP 122/72
--- NOTE | 2019-07-31 08:01 | NUR ---
NURSE NOTES: pt in bed resting, pt on monitoring tech, no signs or cardiac or respiratory distress at this time. pt skin is itchy an red. Call light within reach. Bed is locked and in lowest position. Will continue to monitor and follow plans of care.
[2019-07-31 08:02] LABS: HEMATOCRIT 34.5 % (37.0-47.0); HEMOGLOBIN 11.8 G/DL (12.0-16.0); MEAN CORPUSCULAR VOLUME 84 FL (80-99); PLATELET COUNT 80 K/UL (150-450); RED CELL DISTRIBUTION WIDTH 12.7 % (11.6-14.8); WHITE BLOOD COUNT 7.2 K/UL (4.8-10.8)
[2019-07-31 08:27] LABS: ALANINE AMINOTRANSFERASE 46 U/L (12-78); ALBUMIN/GLOBULIN RATIO 0.6 (1.0-2.7); ALKALINE PHOSPHATASE 54 U/L (46-116); ANION GAP 10 mmol/L (5-15); ASPARTATE AMINO TRANSFERASE 42 U/L (15-37); BLOOD UREA NITROGEN 15 mg/dL (7-18); CARBON DIOXIDE 22 MMOL/L (21-32); CHLORIDE 108 MMOL/L (98-107); CREATININE 0.8 MG/DL (0.55-1.30); FERRITIN 113 NG/ML (8-388); POTASSIUM 4.1 MMOL/L (3.5-5.1); SODIUM 140 MMOL/L (136-145)
[2019-07-31 08:29] LABS: % IRON SATURATION 20 % (15-50); IRON 42 ug/dL (50-175); TOTAL IRON BINDING CAPACITY 208 ug/dL (250-450)
[2019-07-31] MEDS: Enoxaparin 60mg Inj SUBQ SCH (09:00)
[2019-07-31] MEDS: Aspirin Baby 81mg ORAL SCH (09:37)
[2019-07-31] MEDS: Docusate 100mg cap ORAL SCH (09:38)
--- NOTE | 2019-07-31 09:47 | NUR ---
NURSE NOTES: pt refusing hypertension meds claiming she is not hypertensive pt.
--- NOTE | 2019-07-31 10:55 | NUR ---
NURSE NOTES: notifed Britney Ansari/M about pt transfer.
--- NOTE | 2019-07-31 11:20 | NUR ---
NURSE NOTES[facility]
--- NOTE | 2019-07-31 11:56 | Anethesia Preoperative Eval ---
Anesthesia Pre-op PMH/ROS General Date of Evaluation: Jul 31, 2019 Time of Evaluation: 12:23 Anesthesiologist: Ramon ASA Score: ASA 3 Mallampati Score Class I : Soft palate, uvula, fauces, pillars visible Class II: Soft palate, uvula, fauces visible Class III: Soft palate, base of uvula visible Class IV: Only hard plate visible Mallampati Classification: Class II Surgeon: Enrique Diagnosis: R Hip Femoral Neck Fx Surgical Procedure: R Hip Hemiarthroplasty Family History: no anesthesia problems Allergies: Coded Allergies: No Known Allergies (Unverified , 05/31/19) Medications: see eMAR Patient NPO?: Yes Past Medical History Cardiovascular: Reports: HTN, arrhythmia - Pacemaker, other - CHF Endocrine: Reports: hypothyroidism Hematology/Immune: Reports: anemia, other - Rhabdomyolysis Anesthesia Pre-op Phys. Exam Physician Exam Last Vital Signs Date Time Temp Pulse Resp B/P (MAP) Pulse Ox O2 Delivery O2 Flow Rate FiO2 07/31/19 09:46 72 122/72 07/31/19 09:00 Room Air 07/31/19 08:00 97.8 20 94 Constitutional: NAD Neurologic: CN 2-12 intact Cardiovascular: RRR Respiratory: CTA Gastrointestinal: S/NT/ND Airway Exam Mallampati Score: Class II MO: limited ROM: limited Teeth: missing, intact Anesthesia Pre-op A/P Labs Hematology Test 07/31/19 05:41 White Blood Count 7.2 K/UL (4.8-10.8) Red Blood Count 4.10 M/UL (4.20-5.40) L Hemoglobin 11.8 G/DL (12.0-16.0) L Hematocrit 34.5 % (37.0-47.0) L Mean Corpuscular Volume 84 FL (80-99) Mean Corpuscular Hemoglobin 28.8 PG (27.0-31.0) Mean Corpuscular Hemoglobin Concent 34.3 G/DL (32.0-36.0) Red Cell Distribution Width 12.7 % (11.6-14.8) Platelet Count 80 K/UL (150-450) L Mean Platelet Volume 7.9 FL (6.5-10.1) Neutrophils (%) (Auto) % (45.0-75.0) Lymphocytes (%) (Auto) % (20.0-45.0) Monocytes (%) (Auto) % (1.0-10.0) Eosinophils (%) (Auto) % (0.0-3.0) Basophils (%) (Auto) % (0.0-2.0) Differential Total Cells Counted 100 Neutrophils % (Manual) 70 % (45-75) Lymphocytes % (Manual) 13 % (20-45) L Monocytes % (Manual) 11 % (1-10) H Eosinophils % (Manual) 6 % (0-3) H Basophils % (Manual) 0 % (0-2) Band Neutrophils 0 % (0-8) Platelet Estimate Decreased L Platelet Morphology Normal Chemistry Test 07/31/19 05:41 Sodium Level 140 MMOL/L (136-145) Potassium Level 4.1 MMOL/L (3.5-5.1) Chloride Level 108 MMOL/L (98-107) H Carbon Dioxide Level 22 MMOL/L (21-32) Anion Gap 10 mmol/L (5-15) Blood Urea Nitrogen 15 mg/dL (7-18) Creatinine 0.8 MG/DL (0.55-1.30) Estimat Glomerular Filtration Rate > 60 mL/min (>60) Glucose Level 76 MG/DL (74-106) Calcium Level 8.0 MG/DL (8.5-10.1) L Iron Level 42 ug/dL (50-175) L Total Iron Binding Capacity 208 ug/dL (250-450) L Percent Iron Saturation 20 % (15-50) Unsaturated Iron Binding 166 ug/dL (112-346) Ferritin 113 NG/ML (8-388) Total Bilirubin 1.0 MG/DL (0.2-1.0) Aspartate Amino Transf (AST/SGOT) 42 U/L (15-37) H Alanine Aminotransferase (ALT/SGPT) 46 U/L (12-78) Alkaline Phosphatase 54 U/L (46-116) Total Protein 5.4 G/DL (6.4-8.2) L Albumin 2.0 G/DL (3.4-5.0) L Globulin 3.4 g/dL Albumin/Globulin Ratio 0.6 (1.0-2.7) L Risk Assessment & Plan Assessment: ASA 3 Plan: Spinal with GA Status Change Before Surgery: No Pre-Antibiotics Drug: Ridge Gallego MD Jul 31, 2019 11:56
[2019-07-31 12:00] VITALS: BP 111/85
--- NOTE | 2019-07-31 12:45 | NUR ---
NURSE NOTES: pt. refused antibiotics and started to get upset "I don't need antibiotics I don't have an infection, I'm allergic to amoxicillin". Called family to ask if pt is really allergic to it, L/M for her.
--- NOTE | 2019-07-31 13:41 | Consultation ---
Consult Note Consult Note ortho f/u notified by Dr. Decker that per pt and family request pt is being transferred to [facility] for continued care regarding her rt hip. we will cancel her surgery with us tomorrow. Leidy Salcedo Jul 31, 2019 13:41
--- NOTE | 2019-07-31 14:31 | NUR ---
*-* INSURANCE *-* ALL AVAILABLE CLINICALS HAVE BEEN FAXED TO: REF# [id number] NO [facility]# [phone] FAX# [phone] REVIEWS/CLINICALS
--- NOTE | 2019-07-31 14:35 | NUR ---
NURSE NOTES: pt daughter confirmed that Mrs. Rivera does have an new onset reaction to amoxicillin and all penicillin products.
[2019-07-31 16:00] VITALS: BP 123/76
--- NOTE | 2019-07-31 17:01 | NUR ---
ROOF FIXER NOTES RECEIVED A CALL FROM DAVID FROM [facility], PT ACCEPTED TO [facility] ROOM 4422 BED 1. NURSE TO CALL REPORT TO [phone]. [facility] TO TRANSPORT PT WITH ACLS PROTOCOL IN PLACE WITH AN ETA OF 1830. PRIMARY NURSE MADE AWARE.FAMILY MADE AWARE.
--- NOTE | 2019-07-31 17:36 | NUR ---
NURSE NOTES: called report to [facility], spoke to Nikolas and gave report. Also Daughter was notified pt will be leaving around [address] Decker, ok to keep martínez in.
--- NOTE | 2019-07-31 19:52 | NUR ---
NURSE NOTES: pt left in stable condition via ambulance. school lunch monitor was taken off, no cardiac or respiratory distress noted. Pt IV on left arm was not DC. Gonzalez was not DC as per Doctor Vincenzo instructions. Pt took all belongings with her and signed for them on the belonging sheet. 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 All paperwork was fax to transferring hospital ahead of DC. facesheet and CD from pt was given to ambulance personnel.
--- NOTE | 2019-07-31 20:15 | History and Physical Report ---
DATE OF ADMISSION: 07/28/2019 CHIEF COMPLAINT AND REASON FOR HOSPITALIZATION: The patient is admitted to the hospital with hip fracture, rapid atrial fibrillation, probable UTI. HISTORY OF PRESENT ILLNESS: The patient is an 79-year-old Welsh-speaking lady who apparently has chronic atrial fibrillation and presents after a fall and apparently was found down on the bathroom apparently for 2 days and presents to the emergency room as a right hip fracture. On arrival to the floor, she is in rapid atrial fibrillation. She has also pyuria and likely UTI. ALLERGIES: None known. MEDICATION: Thyroxine 100 mcg daily. HABITS: She is a nondrinker and nonsmoker. SURGERIES: Apparently an arm fracture. SYSTEM REVIEW: HEAD, EYES, EARS, NOSE, AND THROAT: Vision and hearing are good. ENDOCRINE: Hypothyroidism, on replacement. No known diabetes. PULMONARY: No history of asthma or TB. CARDIOVASCULAR: History of apparently chronic atrial fibrillation. No history of chest pain or [place]. GASTROINTESTINAL: No GI bleeding or ulcers. GENITOURINARY: UTI currently. No history of recurrent UTIs or dysuria. NEUROLOGIC: No history of CVA or seizures. 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 She was walking independently prior to the recent fall. PHYSICAL EXAMINATION: GENERAL: The patient is an alert lady, uncomfortable in bed. VITAL SIGNS: Temperature 97.3, pulse 85, respiratory rate 20, blood pressure 147/73, heart rate is now in the 120s. HEAD, EYES, EARS, NOSE, AND THROAT: Sclerae are nonicteric. Ocular motions are intact in all directions. Oral mucosa is slightly dry. NECK: No adenopathy or thyroid enlargement. LUNGS: Clear. HEART: Rhythm is atrial fibrillation. I hear no murmur. ABDOMEN: Soft without organomegaly or masses. EXTREMITIES: Swelling of the right thigh and some external rotation consistent with fracture. She has trace edema, degenerative changes in the knees. NEUROLOGIC: She is alert and responsive. Ocular motions intact in all directions. Smile symmetric. Tongue is midline. She moves all extremities. PERTINENT LABS: Admission BUN 40, creatinine 1, electrolytes normal. Glucose 143 and 87. Mild elevation of AST and ALT. CK 4450 and repeat 1762. Troponin 0.778, 0.532. BNP 4042. Albumin 2.4, white count 16.8, hemoglobin 12.5. Urine shows 10-15 white cells per high power field. IMPRESSION: 1. Ground-level fall with right hip fracture. 2. Atrial fibrillation with rapid ventricular response. 3. Pyuria and likely UTI. 4. Rhabdomyolysis secondary to fall. 5. Cardiomegaly. PLAN: The patient will be stabilized with cardiac management of her atrial fibrillation. Treatment of UTI. DVT prophylaxis. We will prepare for hip surgery after stabilization of the above. She is full code according to the family, and I discussed the case with the family. Dylon Decker M.D. DR: ROXANA JOB#: [id number] CC:
--- NOTE | 2019-07-31 20:15 | Progress Note ---
DATE: 07/29/2019 CARDIOLOGY PROGRESS NOTE SUBJECTIVE: The patient has slight pain on her right side. No shortness of breath. She developed rapid atrial fibrillation this morning. PHYSICAL EXAMINATION: LUNGS: With diminished breath sounds. No wheezing or rales. CARDIAC: Irregularly irregular rhythm. Normal S1 and S2 with a 1/6 systolic apical murmur. ABDOMEN: Soft and nontender. EXTREMITIES: Tenderness over the right shoulder and hip region. No edema. LABORATORY DATA: Potassium 3.5, BUN 33, and creatinine 0.9. . CK down to 1700 from 4400. Natriuretic peptide is 4000. TSH 1.9. IMPRESSION: 1. Probable mechanical fall. 2. Cannot exclude syncopal episode. 3. Right hip fracture. 4. Paroxysmal atrial fibrillation with rapid ventricular response. 5. Acute on chronic diastolic congestive heart failure, precipitated by above. 6. Acute myocardial ischemia. 7. Rhabdomyolysis. 8. Urinary tract infection with sepsis. 9. Moderate to severe protein-calorie malnutrition. 10. Borderline potassium level. PLAN: 1. Continue hydration. 2. Replace potassium. 3. Add beta-karen. 4. Anti-platelet therapy with aspirin. 5. anticoagulation with Lovenox for cardioembolic prophylaxis. 6. Defer her surgery until metabolic and cardiovascular parameters as well as infection have been stabilized. Michael Pickard M.D. DR: ANTHONY JOB#: [id number] CC:
[2019-07-31] MEDS ORDERED: Enoxaparin 60mg Inj SUBQ SCH (21:00)
--- NOTE | 2019-07-31 21:01 | Consultation ---
DATE OF CONSULTATION: 07/29/2019 CONSULTING PHYSICIAN: Sarmad Nunez M.D. REQUESTING PHYSICIAN: Dr. Decker. CHIEF COMPLAINT: Right hip fracture. BRIEF HISTORY: The patient is a pleasant 79-year-old female who was found in her home. She is primarily Botswanan speaking. Apparently, she was going to her bathroom and fell down and fell on her right side and was unable to get up. She laid there for about a couple of days until the police were called for foul smell coming from her apartment. She was taken to [facility] and she was admitted. She was dehydrated. She was noted to have a right subcapital femoral neck fracture. She was admitted to the hospital. Currently, she is in rapid atrial fibrillation, is being managed by Dr. Decker and Dr. Pickard for Cardiology. The patient states that she has had ongoing issues with her right hip. The patient was previously ambulatory. PAST MEDICAL HISTORY: Significant for history of heart failure. PAST SURGICAL HISTORY: She had pacemaker. ALLERGIES: No known drug allergies. SOCIAL HISTORY: She denies drug or alcohol abuse. She is generally ambulatory. REVIEW OF SYSTEMS: Noncontributory. PHYSICAL EXAMINATION: GENERAL: Examination of the patient today reveals she is a pleasant lady, cooperative with examination. She is not in any acute distress. EXTREMITIES: The right leg is shortened, externally rotated. She has got some bruising of the lateral aspect of the hip. There is no pressure ulceration that could be appreciated. X-RAYS: X-rays of hip and pelvis were reviewed. There is a displaced subcapital femoral neck fracture. IMPRESSION: Right subcapital femoral neck fracture, displaced. PLAN: At this time, I had a discussion with the patient and the family. She is best served with a right hip hemiarthroplasty. I discussed with Dr. Decker and Dr. Decker informed me that the patient is currently in atrial fibrillation with rapid ventricular response. Therefore, she needs to be anticoagulated, and atrial fibrillation needs to be managed prior to proceeding with surgery. Therefore, she is not medically cleared. We will go ahead and proceed with right hip hemiarthroplasty once she is medically cleared. We will tentatively schedule her for in the next 48 to 72 hours as this is timeframe that was given to me to stabilize the patient for surgery. We will proceed with right hip hemiarthroplasty. Risks, benefits, and complications of the surgery were fully discussed with the patient's family. The risks of infection, bleeding, neurovascular complication, possible leg length discrepancy, DVT, PEs, and other complication may arise. She understands. We will go ahead and proceed when she is medically stable. Sarmad Nunze M.D. DR: SCARLETT JOB#: [id number] CC: CHERYL
--- NOTE | 2019-07-31 21:01 | Consultation ---
DATE OF CONSULTATION: 07/28/2019 REQUESTING PHYSICIAN: Dylon Decker M.D. REASON FOR CONSULTATION: Elevated troponin level. CONSULTING PHYSICIAN: Michael Pickard M.D. HISTORY OF PRESENT ILLNESS: This is an 79-year-old Cam[place] female. She has a history of heart failure and conduction system disease, status post permanent pacemaker implant. She took a fall at home and was brought to the emergency room for evaluation. She apparently fell 2 days ago ____ bathroom. She fell on her right side and was unable to get up. She notes worsening pain of her right hip and leg and inability to weight bear. She was seen in the emergency room after being on the floor 2 days at home before being found down. The patient is unaware of any loss of consciousness. Denied chest pain, palpitations, or shortness of breath. She claims that she tripped and fell. PAST MEDICAL HISTORY: Includes congestive heart failure, hypertension, and permanent pacemaker. ALLERGIES: None. MEDICATIONS: Reviewed. FAMILY HISTORY: Noncontributory. SOCIAL HISTORY: Negative for smoking, alcohol, or substance abuse. REVIEW OF SYSTEMS: Otherwise unremarkable. PHYSICAL EXAMINATION: VITAL SIGNS: Blood pressure 142/84, pulse 85, respirations 16, and afebrile. HEENT: Normocephalic and atraumatic. Conjunctivae pink. Oropharynx clear. Mucous membranes moist. NECK: Supple. Jugular venous pressure grossly normal. CHEST WALL: With pacemaker pocket site clean and dry. LUNGS: Clear. CARDIAC: Regular rhythm and rate. Normal S1 and S2. A 1/6 systolic murmur at apex. ABDOMEN: Soft and nontender. EXTREMITIES: No edema. There is tenderness and deformities over the right mid ____ knee. Limited range of motion and elicited pain. LABORATORY DATA: White count 19.6 and hemoglobin 14.4. Urinalysis, 10 to 15 white cells. Sodium 141, potassium 3.6, bicarb 20, BUN 40, creatinine 1, and troponin 0.778. CK is 4450. EKG with sinus rhythm, QTc prolongation and nonspecific ST changes. Chest x-ray with no acute process. Hip x-rays are notable for fractures on the right intertrochanteric and/or femoral neck. Head CT with no acute process. IMPRESSIONS: 1. Apparent mechanical fall, although syncopal episode cannot be entirely excluded. 2. Right hip fracture. 3. Leukocytosis, likely due to demargination and possibly associated urinary tract infection. 4. Hypovolemia, dehydration, and prerenal azotemia. 5. Rhabdomyolysis. 6. Troponin leak, secondary to above and possible acute myocardial ischemia, less likely non-ST elevation infarction. 7. History of conduction system disease with permanent pacemaker, rule out pacemaker malfunction. 8. Hypertensive heart disease with no signs of acute congestive heart failure clinically. PLAN: 1. Cardiac monitoring. 2. Antiplatelet therapy. 3. Serial troponins and CK with CK-MB fraction. 4. Hydration. 5. DVT prophylaxis. 6. Orthopedic evaluation pending for possible surgical intervention. 7. Titrate antihypertensive with caution. 8. Follow up laboratory studies and adjustment of cardiovascular therapy as clinical condition warrants. 9. Echocardiogram has been requested as well. 10. We will further consider pacemaker interrogation once data regarding the device is available. Michael Pickard M.D. DR: LINDSEY JOB#: [id number] CC:
--- NOTE | 2019-08-01 02:15 | Progress Note ---
DATE: 07/31/2019 SUBJECTIVE: The patient remains in sinus rhythm with rare atrial ectopics. No chest pain or shortness of breath. OBJECTIVE: VITAL SIGNS: Blood pressure 111/85, pulse 74, respiratory rate 20, and afebrile. Room air oxygen saturation 94% to 95%. LUNGS: Bilateral breath sounds. CARDIAC: Regular rhythm and rate. Normal S1 and S2 with a 1/6 systolic apical murmur. ABDOMEN: Soft and nontender. EXTREMITIES: No edema. Slight bruising over the right thigh. LABORATORY DATA: White count is 11.2 and hemoglobin 11.8. Sodium 140, potassium 4.1, bicarbonate 22, BUN 15, and creatinine 0.8. Albumin 2.0. IMPRESSION: 1. Mechanical fall. 2. Paroxysmal atrial fibrillation. 3. Right hip fracture. 4. Acute myocardial ischemia and possible emd-HY-okjlvfslt myocardial infarction. 5. Acute diastolic congestive heart failure. 6. Severe protein-calorie malnutrition. 7. Rhabdomyolysis, resolved. PLAN: 1. Maintain current cardiovascular regimen, can discontinue high dose Lovenox if the patient maintaining sinus rhythm postoperatively and transition to DVT prophylaxis dosing. 2. Protein supplement. 3. Maintain beta-blockade. 4. Stable for orthopedic surgery with minimally increased perioperative cardiovascular risk. 5. Maintenance IV fluids while NPO for surgery. Michael Pickard M.D. DR: CRIS JOB#: [id number] CC:
--- NOTE | 2019-08-01 02:30 | Discharge Summary ---
DATE OF ADMISSION: 07/28/2019 DATE OF DISCHARGE: 07/31/2019 PERTINENT HISTORY: The patient presents with a fall at home and a right hip fracture. She also was found to have atrial fibrillation, dehydration, and urinary tract infection. PERTINENT PHYSICAL FINDINGS: LUNGS: Clear. HEART: Rhythm, atrial fibrillation. ABDOMEN: Soft. EXTREMITIES: Show right external rotation of the hip. COURSE IN THE HOSPITAL: The patient was hydrated as she had rhabdomyolysis. She was given empiric antibiotics for urinary tract infection and cardiac monitoring. It was felt that her condition was improved. Troponin was elevated consistent with acute myocardial ischemia, though it could be false positive secondary to rhabdomyolysis. The family requested transfer to [facility] were prior doctors were available and she was transferred in stable condition. FINAL DIAGNOSES: 1. Right hip fracture. 2. Rhabdomyolysis. 3. Acute myocardial ischemia. 4. Paroxysmal atrial fibrillation. 5. Urinary tract infection. 6. Acute on chronic diastolic congestive heart failure. 7. Protein-calorie malnutrition, moderate. 8. Urinary tract infection. 9. Allergic reaction to Zosyn with the rash, mild. DISCHARGE DISPOSITION: To [facility] where she will receive her care. Dylon Decker M.D. DR: KAYDEN JOB#: [id number] CC:
--- NOTE | 2019-08-02 13:58 | NUR ---
*-* INSURANCE *-* DISCHARGE SUMMARY HAS BEEN FAXED HN REF# [id number] NO [facility]# [phone] FAX# [phone] REVIEWS/CLINICALS
== END 2019-07-31 20:05 | disposition short-term general hospital (02) | DRG 340 ==
LOC: EDBD 18:17 → EMR 19:11 → EDBEDREQSVC 19:31 → EDBEDREQ 19:33 → 2E 19:38 → EDBEDREQ 20:37
DX: S72.011A Unspecified intracapsular fracture of right femur, initial encounter for closed fracture (principal); W19.XXXA Unspecified fall, initial encounter; Y92.002 Bathroom of unspecified non-institutional (private) residence as the place of occurrence of the external cause; N39.0 Urinary tract infection, site not specified; M62.82 Rhabdomyolysis; I50.33 Acute on chronic diastolic (congestive) heart failure; I48.0 Paroxysmal atrial fibrillation; E44.0 Moderate protein-calorie malnutrition; I11.0 Hypertensive heart disease with heart failure; Z95.0 Presence of cardiac pacemaker; E86.0 Dehydration; I51.3 Intracardiac thrombosis, not elsewhere classified; L27.0 Generalized skin eruption due to drugs and medicaments taken internally; T36.0X5A Adverse effect of penicillins, initial encounter
CPT/HCPCS: 36415; 70450; 71045; 72170; 80053; 81003; 82248; 82550; 82553; 82728; 83540; 83550; 83880; 84443; 84484; 85007; 85025; 85610; 85730; 87086; 87181; 93005; 96360; 99285; J7030; J8499